=== PATIENT | female | born 1945 | race Caucasian/White ===

== ENCOUNTER → 2016-03-06 | Outpatient (CLI) | payer MEDICARE ==
--- NOTE | 2016-03-09 13:51 | XR ---
EXAMINATION TYPE: XR chest 2V DATE OF EXAM: 03/06/2016 11:06 AM COMPARISON: 07/09/2013 INDICATION: Bronchopneumonia cough dyspnea TECHNIQUE: Frontal and lateral views of the chest are obtained. FINDINGS: The heart size is normal. The pulmonary vasculature is normal. The lungs are clear. IMPRESSION: 1. No acute pulmonary process.
== END | disposition home or self-care (01) ==
LOC: RADXRYALE 10:48
PROVIDERS: ATTEND Physician Assistant Medical
DX: J18.0 Bronchopneumonia, unspecified organism (principal)
CPT/HCPCS: 71020

== ENCOUNTER → 2016-09-22 | Outpatient (CLI) | payer MEDICARE ==
--- NOTE | 2016-09-22 10:34 | XR ---
EXAMINATION TYPE: XR knee complete RT DATE OF EXAM: 09/22/2016 COMPARISON: NONE HISTORY: Right knee pain TECHNIQUE: Three-view right knee FINDINGS: No joint effusion is evident. Posterior patellar spurring is present inferiorly and superio rly. There is medial femoral condylar and medial tibial plateau spurring. No acute fractures are evid ent. Mild diffuse joint space narrowing is present. IMPRESSION: 1. Diffuse degenerative changes through the right knee.
== END | disposition home or self-care (01) ==
LOC: RADXRYALE 09:55
PROVIDERS: ATTEND Family Medicine
DX: M25.861 Other specified joint disorders, right knee (principal); M25.561 Pain in right knee; G89.29 Other chronic pain

== ENCOUNTER → 2016-10-22 | Outpatient (CLI) | payer MEDICARE ==
--- NOTE | 2016-10-23 09:32 | MM ---
Reason for exam: screening (asymptomatic). Last mammogram was performed 1 year ago. History: Patient is postmenopausal. Benign excisional biopsy of the left breast, 2000. Took estrogen for 10 years beginning at age 48. Physical Findings: A clinical breast exam by your physician is recommended on an annual basis and results should be correlated with mammographic findings. MG 3D Screening Mammo W/Cad Bilateral CC and MLO view(s) were taken. Prior study comparison: October 16, 2015, bilateral MG 3d screening mammo w/cad. October 02, 2014, bilateral MG screening mammo w CAD. There are scattered fibroglandular densities. There are typically benign round, vascular calcifications in both breasts. There is no discrete abnormality. ASSESSMENT: Benign, BI-RAD 2 RECOMMENDATION: Routine screening mammogram of both breasts in 1 year.
== END | disposition home or self-care (01) ==
LOC: RADMAMWWP 10:09
PROVIDERS: ATTEND Family Medicine
DX: Z12.31 Encounter for screening mammogram for malignant neoplasm of breast (principal)
CPT/HCPCS: 77063; G0202

== ENCOUNTER → 2017-07-06 | Outpatient (CLI) | payer MEDICARE ==
--- NOTE | 2017-07-06 12:54 | XR ---
EXAMINATION TYPE: XR elbow complete LT DATE OF EXAM: 07/06/2017 CLINICAL HISTORY: Fall 3 weeks ago with subsequent elbow pain TECHNIQUE: Frontal, lateral and oblique images of the left elbow are obtained. COMPARISON: None FINDINGS: There is a subacute fracture with partial healing of the coronoid process of the olecranon with small joint effusion as there is a prominent anterior and minimally visible posterior fat pad. T he fracture fragment measures 2 mm and is nondisplaced and noncomminuted. Additionally there is some adjacent periosteal reaction indicating healing. No additional fractures are seen within the left elb ow. The overlying soft tissue appears unremarkable. IMPRESSION: 2 mm subacute healing chip fracture of the coronoid process of the olecranon with small a ssociated joint effusion of the left elbow..
== END | disposition home or self-care (01) ==
LOC: RADXRYALE 11:41
PROVIDERS: ATTEND Family Medicine
DX: S52.042A Displaced fracture of coronoid process of left ulna, initial encounter for closed fracture (principal)

== ENCOUNTER → 2017-10-27 | Outpatient (CLI) | payer MEDICARE ==
--- NOTE | 2017-10-27 17:47 | XR ---
EXAMINATION TYPE: XR elbow complete LT DATE OF EXAM: 10/27/2017 COMPARISON: 07/06/2017 HISTORY: Persistent left elbow pain TECHNIQUE: Three-view left elbow FINDINGS: Anterior fat pad is normal. No elevation of posterior fat pad is present which is normal. P revious chip fracture of the ulna has healed. No residual fracture or free body is evident. No joint effusion is evident. IMPRESSION: 1. Normal three-view left elbow
== END | disposition home or self-care (01) ==
LOC: RADXRYALE 14:26
PROVIDERS: ATTEND Physician Assistant Medical
DX: M25.522 Pain in left elbow (principal)

== ENCOUNTER → 2017-11-01 | Outpatient (CLI) | payer MEDICARE ==
--- NOTE | 2017-11-03 10:10 | MM ---
Reason for exam: screening (asymptomatic). Last mammogram was performed 1 year ago. History: Patient is postmenopausal. Benign excisional biopsy of the left breast, 2000. Took estrogen for 10 years beginning at age 48. Physical Findings: A clinical breast exam by your physician is recommended on an annual basis and results should be correlated with mammographic findings. MG 3D Screening Mammo W/Cad Bilateral CC and MLO view(s) were taken. Prior study comparison: October 22, 2016, bilateral MG 3d screening mammo w/cad. October 16, 2015, bilateral MG 3d screening mammo w/cad. There are scattered fibroglandular densities. Finding: There are typically benign vascular, dystrophic, round, linear calcifications in both breasts. There is no discrete abnormality. ASSESSMENT: Benign, BI-RAD 2 RECOMMENDATION: Routine screening mammogram of both breasts in 1 year.
== END | disposition home or self-care (01) ==
LOC: RADMAMWWP 10:35
PROVIDERS: ATTEND Family Medicine
DX: Z12.31 Encounter for screening mammogram for malignant neoplasm of breast (principal)
CPT/HCPCS: 77063; 77067

== ENCOUNTER → 2017-12-22 | Outpatient (CLI) | payer MEDICARE ==
--- NOTE | 2017-12-22 15:49 | US ---
EXAMINATION TYPE: US thyroid st tissue head/neck DATE OF EXAM: 12/22/2017 COMPARISON: US 5-16 CLINICAL HISTORY: E04.1 Thyroid Nodule. GLAND SIZE: Right Lobe: 4.0 x 1.4 x 1.6 cm Overall Parenchyma: heterogenous Left Lobe: 4.0 x 1.4 x 1.4 cm Overall Parenchyma: heterogeneous Isthmus Thickness: 0.2 cm NODULES RIGHT: # of nodules measured on right: 3 largest of multiple 1. 1.2 X 1.1 x 0.7 cm hypoechoic solid nodule at the upper pole with well-defined margins. This no dule is wider than tall and shows intranodular vascularity. Prior size: 1.1 x 0.7 x 1.1 cm 2. 0.7 X 0.5 x 0.4 cm isoechoic mixed nodule at the mid pole with poorly defined margins; interrupte d peripheral calcification. This nodule is wider than tall and shows intranodular vascularity. Prior size: 1.0 x 0.6 x 0.8 cm 3. 0.8 X 0.6 x 0.5 cm hypoechoic mixed nodule at the mid medial pole with poorly defined margins. T his nodule is wider than tall and shows no intranodular vascularity. seen as different nodule today LEFT: # of nodules measured on left: 3 1. 0.8 X 0.7 x 0.5 cm hypoechoic cystic nodule at the upper pole with well-defined margins; interru pted peripheral calcification. This nodule is wider than tall and shows no intranodular vascularity. Prior size: 0.7 x 0.4 x 0.6 cm 2. 0.5 X 0.4 x 0.4 cm echogenic mixed nodule at the lower pole with well-defined margins; interrupte d peripheral calcification. This nodule is wider as is tall and shows no intranodular vascularity. Prior size: 0.7 x 0.6 x 0.8 cm 3. 0.4 X 0.3 x 0.1 cm echogenic solid nodule at the mid medial pole with irregular margins; primaril y calcified nodule. This nodule is wider than tall and shows no intranodular vascularity. Prior size: 0.6 x 0.5 x 0.5 cm ISTHMUS: # of nodules measured in the isthmus: 0 Bilateral neck scanned: no evidence of lymphadenopathy. IMPRESSION: Stable nonspecific nodularity.
== END | disposition home or self-care (01) ==
LOC: RADUSWWP 14:14
PROVIDERS: ATTEND Internal Medicine
DX: E04.2 Nontoxic multinodular goiter (principal)
CPT/HCPCS: 76536

== ENCOUNTER → 2018-01-12 | Outpatient (CLI) | payer MEDICARE ==
--- NOTE | 2018-01-12 17:06 | XR ---
Cervical spine HISTORY: Neck pain with arm numbness 5 views of the cervical spine There is multilevel facet arthropathy. Lateral extension of endplates at C4-5 and C5-6, C6-7 on the l eft and on the right at C5-6 and C6-7 cause foraminal encroachment. Anterolisthesis grade 1 C3-4. Los s of disc height present at C2-3, C4-5, C5-6 and C6-7, C7-T1 with associated spondylosis. Minimal ret rolisthesis grade 1 C6-7, C5-6. Prevertebral soft tissues are normal. Patient is edentulous. Calcific ation in the paraspinal soft tissues may be due to carotid artery calcification. IMPRESSION: Degenerative disc disease, foraminal encroachment, facet arthropathy.
== END | disposition home or self-care (01) ==
LOC: RADXRYALE 11:26
PROVIDERS: ATTEND Physician Assistant Medical
DX: M50.30 Other cervical disc degeneration, unspecified cervical region (principal); M46.82 Other specified inflammatory spondylopathies, cervical region
CPT/HCPCS: 72050

== ENCOUNTER → 2018-02-09 | Outpatient (CLI) | payer MEDICARE ==
--- NOTE | 2018-02-10 12:11 | BD ---
EXAMINATION TYPE: Axial Bone Density DATE OF EXAM: 02/09/2018 COMPARISON: NONE CLINICAL HISTORY: Height: 4 FT 11 02/25 Weight: 128 FRAX RISK QUESTIONS: History of Fracture in Adulthood: YES Secondary Osteoporosis: RISK FACTORS HISTORY OF: Active: YES Postmenopausal woman: PART HYST AGE 26 Take estrogen and/or progesterone medications: UNSURE Lost more than 2 inches in height since high school: YES MEDICATIONS: Additional Medications: METFORMIN, CHOLESTEROL PILLS, BLOOD PRESSURE MEDS, Additional History: PT HAS DIABETES, EXAM MEASUREMENTS: Bone mineral densitometry was performed using the [employer] System. Bone mineral density as measured about the Lumbar spine is: ----- L1-L4(G/cm2): 1.435 T Score Values are as follows: ----- L2: 2.2 ----- L3: 2.4 ----- L4: 3.7 ----- L1-L4: 2.1 PREV NOT DONE HERE Bone mineral density about the R hip (g/cm2): 0.726 Bone mineral density about the L hip (g/cm2): 0.751 T Score values are as follows: -----R Neck: -2.2 -----L Neck: -2.1 -----R Total: -1.8 -----L Total: -1.4 PREV NOT DONE HERE IMPRESSION: Osteopenia bilateral femora NOTE: T-SCORE=SD OF THE YOUNG ADULT MEAN.
== END ==
LOC: RADBDWWP 15:33
PROVIDERS: ATTEND Family Medicine
DX: M85.852 Other specified disorders of bone density and structure, left thigh (principal); M85.851 Other specified disorders of bone density and structure, right thigh
CPT/HCPCS: 77080

== ENCOUNTER → 2018-04-28 | Outpatient (CLI) | payer MEDICARE ==
--- NOTE | 2018-04-28 15:21 | MR ---
EXAMINATION TYPE: MR cervical spine wo con DATE OF EXAM: 04/28/2018 COMPARISON: Cervical spine dated 01/12/2018 x-rays HISTORY: Cervical disc disorder / Cervicalgia TECHNIQUE: Multiplanar, multisequence images of the cervical spine were acquired. FINDINGS: There is slight retrolisthesis of C4 and C5, C5 on C6 and C6 on C7 with minimal anterolisth esis (grade 1) of C7 on T1. Multilevel malalignment is likely on a degenerative basis. Ligamentum fla vum buckling is seen throughout the lower cervical spine. Multilevel degenerative disc disease and di sc desiccation is seen. C2-C3: Broad-based disc bulge is present without spinal canal stenosis nor neural foraminal narrowing . C3-C4: Bilateral uncovertebral hypertrophy and facet arthropathy are present resulting in mild bilate ral neural foraminal narrowing without spinal canal stenosis. C4-C5: There is a broad-based disc bulge, uncovertebral hypertrophy and facet arthropathy creating mi ld left and moderate right neural foraminal narrowing and mild spinal canal stenosis. C5-C6: There is a right paracentral disc herniation superimposed upon a broad-based disc bulge with u ncovertebral hypertrophy, facet arthropathy, and ligamentum flavum buckling all contributing to moder ate spinal canal stenosis, mild right neural foraminal narrowing and moderate left neural foraminal n arrowing. C6-C7: There is a broad-based disc bulge, ligamentum flavum buckling, and uncovertebral hypertrophy a s well as facet arthropathy contributing to moderate bilateral neural foraminal narrowing and mild sp inal canal stenosis. C7-T1: There is a broad-based disc bulge and ligamentum flavum buckling resulting in mild bilateral n eural foraminal narrowing without spinal canal stenosis. The thyroid gland is noted be heterogenous corresponding to the prior thyroid ultrasound of 8. IMPRESSION: 1. Right paracentral disc herniation at C5-C6 in combination with degenerative disc disease contribut es moderate spinal canal stenosis, mild right neural foraminal narrowing and moderate left neural for aminal narrowing. 2. Multilevel malalignment throughout the cervical spine is likely on a degenerative basis. 3. Moderate multilevel degenerative disc disease results in variable degrees of neural foraminal narr owing as described above as well as mild spinal canal stenosis at C4-C5 and C6-C7.
== END | disposition home or self-care (01) ==
LOC: RADMRIMAIN 12:45
PROVIDERS: ATTEND Physician Assistant Medical
DX: M48.02 Spinal stenosis, cervical region (principal); M50.222 Other cervical disc displacement at C5-C6 level; M50.322 Other cervical disc degeneration at C5-C6 level
CPT/HCPCS: 72141

== ENCOUNTER → 2018-11-21 | Outpatient (CLI) | payer MEDICARE ==
--- NOTE | 2018-11-23 09:59 | MM ---
Reason for exam: screening (asymptomatic). Last mammogram was performed 1 year and 1 month ago. History: Patient is postmenopausal. Benign excisional biopsy of the left breast, 2000. Took estrogen for 10 years beginning at age 48. Physical Findings: A clinical breast exam by your physician is recommended on an annual basis and results should be correlated with mammographic findings. MG 3D Screening Mammo W/Cad Bilateral CC and MLO view(s) were taken. Prior study comparison: November 01, 2017, bilateral MG 3d screening mammo w/cad. October 22, 2016, bilateral MG 3d screening mammo w/cad. The breast tissue is heterogeneously dense. This may lower the sensitivity of mammography. No significant changes when compared with prior studies. ASSESSMENT: Benign, BI-RAD 2 RECOMMENDATION: Routine screening mammogram of both breasts in 1 year.
== END | disposition home or self-care (01) ==
LOC: RADMAMWWP 15:31
PROVIDERS: ATTEND Family Medicine
DX: Z12.31 Encounter for screening mammogram for malignant neoplasm of breast (principal)
CPT/HCPCS: 77063; 77067

== ENCOUNTER → 2018-12-26 | Outpatient (CLI) | payer MEDICARE | END | disposition home or self-care (01) | LOC: CPPFTMAIN 11:39 | PROVIDERS: ATTEND Internal Medicine Critical Care Medicine | DX: J44.9 Chronic obstructive pulmonary disease, unspecified (principal) | CPT/HCPCS: 94060; 94726; 94729 ==

== ENCOUNTER → 2019-02-20 | Outpatient (CLI) | payer MEDICARE ==
--- NOTE | 2019-02-20 11:43 | XR ---
EXAMINATION TYPE: XR lumbosacral spine min 4V DATE OF EXAM: 02/20/2019 CLINICAL HISTORY: Acute on chronic low back pain TECHNIQUE: Frontal, lateral, and oblique images of the lumbar spine are obtained. COMPARISON: None FINDINGS: There is a S-shaped scoliotic curvature of the lumbar spine. Moderate degenerative disc di sease is seen as multilevel intervertebral disc space narrowing, endplate sclerosis, anterior osteoph ytes and facet arthropathy as well as vacuum disc phenomenon. Extensive atherosclerosis of the abdomi nal aorta. Surgical clips in the right upper quadrant from prior cholecystectomy. There are 5 lumbar type vertebral bodies identified. The lumbar spine shows satisfactory alignment without evidence of acute fracture or dislocation. Vertebral body heights and disk space heights are within normal limits . Oblique images demonstrate neural foraminal narrowing at each level, difficult to grade given the s coliosis.. The overlying soft tissue appears unremarkable. IMPRESSION: 1. No acute fracture or malalignment is seen in the lumbar spine. 2. Advanced degenerative disc disease of the lumbar spine and S-shaped scoliosis of the lumbar spine.
== END | disposition home or self-care (01) ==
LOC: RADXRYALE 10:42
PROVIDERS: ATTEND Physician Assistant Medical
DX: M51.36 Other intervertebral disc degeneration, lumbar region (principal); M41.86 Other forms of scoliosis, lumbar region
CPT/HCPCS: 72110

== ENCOUNTER → 2019-06-29 | Outpatient (CLI) | payer MEDICARE ==
--- NOTE | 2019-06-29 11:33 | XR ---
EXAMINATION TYPE: XR ribs RT w pa chest xray DATE OF EXAM: 06/29/2019 COMPARISON: 03/06/2016 HISTORY: Pain TECHNIQUE: Single view of the chest right views of the ribs are submitted. FINDINGS: The lungs are clear. No Evidence for pneumothorax. No evidence for focal contusion. Medi astinal structures are midline. Evaluation of the ribs demonstrates a displaced rib fractures of rig ht ribs 4 through 8 IMPRESSION: displaced rib fractures of right ribs 4 through 8. No definite pneumothorax appreciated a t this time.
== END | disposition home or self-care (01) ==
LOC: RADXRYALE 11:13
PROVIDERS: ATTEND Family Medicine
DX: S22.41XD Multiple fractures of ribs, right side, subsequent encounter for fracture with routine healing (principal)

== ENCOUNTER → 2019-07-11 | Outpatient (CLI) | payer MEDICARE ==
[2019-07-11 12:50] LABS: INR 0.9 (<1.2); Partial Thromboplastin Time 22.5 sec (22.0-30.0); Prothrombin Time 9.7 sec (9.0-12.0)
[2019-07-11 13:01] LABS: HCT 38.4 % (34.0-46.0); HGB 12.7 gm/dL (11.4-16.0); MCH 29.1 pg (25.0-35.0); MCHC 33.1 g/dL (31.0-37.0); Mean Platelet Volume 6.9; Platelet Count 375 k/uL (150-450); RBC 4.37 m/uL (3.80-5.40); RDW 12.9 % (11.5-15.5); WBC 7.9 k/uL (3.8-10.6)
[2019-07-11 18:49] LABS: African American GFR (CKD) 104.8 (60.0-200.0); Albumin 4.4 g/dL (3.80-4.90); Albumin/Globulin Ratio 2.32 (1.60-3.17); BUN/Creat Ratio 21.67 Ratio (12.00-20.00); Calcium 9.8 mg/dL (8.7-10.3); Globulin 1.9 g/dL (1.6-3.3); Non-African American GFR(CKD) 90.4 (60.0-200.0); Potassium 4.7 mmol/L (3.5-5.5); Total Bilirubin 0.4 mg/dL (0.3-1.2); Total Protein 6.3 g/dL (6.2-8.2)
== END | disposition home or self-care (01) ==
LOC: LABWHC1 11:27
PROVIDERS: ATTEND Orthopaedic Surgery
DX: Z01.818 Encounter for other preprocedural examination (principal); Z01.812 Encounter for preprocedural laboratory examination; U07.1 COVID-19
CPT/HCPCS: 80053; 85027; 85610; 85730; 87070; 87635

== ENCOUNTER → 2019-07-12 | Outpatient (CLI) | payer MEDICARE ==
--- NOTE | 2019-07-12 11:14 | XR ---
EXAMINATION TYPE: XR ribs RT w pa chest xray DATE OF EXAM: 07/12/2019 CLINICAL HISTORY: Known right-sided rib fractures progress study. TECHNIQUE: Single frontal view of the chest is obtained. A frontal and oblique images of the right-si ded ribs. COMPARISON: Prior x-ray June 29, 2019 FINDINGS: There is chronic parenchymal change without suspicious new focal air space opacity, pleura l effusion, or pneumothorax seen. The cardiac silhouette size remains within normal limits with athe rosclerotic change in the aortic knob. Cholecystectomy clips are redemonstrated. S-shaped scoliosis o f the visualized spine again seen. There is redemonstration of persistent displaced fractures involving the posterior right fourth throu gh eighth ribs. No significant change in alignment or new callus formation. Osseous structures redemo nstrated demineralized. No new fractures are present. IMPRESSION: Stable age indeterminate displaced fractures of the posterior right fourth through eighth ribs. No significant interval change.
== END | disposition home or self-care (01) ==
LOC: RADXRYALE 10:44
PROVIDERS: ATTEND Physician Assistant Medical
DX: S22.41XS Multiple fractures of ribs, right side, sequela (principal)

== ENCOUNTER → 2019-07-26 | Outpatient (CLI) | payer MEDICARE ==
--- NOTE | 2019-07-26 11:37 | XR ---
EXAMINATION TYPE: XR ribs RT w pa chest xray DATE OF EXAM: 07/26/2019 CLINICAL HISTORY: Known right-sided rib fractures. TECHNIQUE: Single frontal view of the chest is obtained. A frontal and oblique images of the right-si ded ribs are acquired. COMPARISON: Chest and right-sided rib x-ray July 12, 2019 FINDINGS: There is persistent right upper to midlung linear scarring and/or atelectasis laterally ne ar fracture site. No new focal airspace opacity, pleural effusion, pneumothorax is seen bilaterally. The cardiac silhouette size remains within normal limits without atherosclerotic change aortic knob. Underlying S-shaped scoliosis redemonstrated. Cholecystectomy clips redemonstrated. There are persistent displaced fractures involving the posterior lateral right fourth through eighth ribs with some new callus formation now identified. IMPRESSION: New callus formation consistent with healing subacute posterolateral right fourth through eighth rib fractures..
== END | disposition home or self-care (01) ==
LOC: RADXRYALE 11:14
PROVIDERS: ATTEND Physician Assistant Medical
DX: M89.8X8 Other specified disorders of bone, other site (principal)

== ENCOUNTER → 2019-07-28 | Outpatient (CLI) | payer MEDICARE ==
[2019-07-28 15:25] LABS: Appearance,Urine Clear (Clear); Bilirubin,Urine Negative (Negative); Blood,Urine Negative (Negative); Color,Urine Light Yellow; Glucose,Urine (UA) Negative (Negative); Ketones,Urine Negative (Negative); Leukocyte Esterase,Urine Trace (Negative); Nitrite,Urine Negative (Negative); PH, Urine 5.5 (5.0-8.0); Protein,Urine Negative (Negative); RBC,Urine <1 /hpf (0-5); Specific Gravity,Urine 1.011 (1.001-1.035); Urobilinogen,Urine <2.0 mg/dL (<2.0); WBC,Urine 1 /hpf (0-5)
== END | disposition home or self-care (01) ==
LOC: LABPAT 13:49
PROVIDERS: ATTEND Orthopaedic Surgery
DX: Z01.818 Encounter for other preprocedural examination (principal); Z01.812 Encounter for preprocedural laboratory examination; Z11.59 Encounter for screening for other viral diseases
CPT/HCPCS: 81001; U0003

== ENCOUNTER 2019-07-31 10:27 | Day surgery (SDC) | payer MEDICARE ==
[2019-07-28 07:58] VITALS: BMI 25.0
[~2019-07-31 10:27] MED LIST: ACETAMINOPHEN TAB 500 MG TAB PO ONE; HYDROmorphone 0.5 MG/0.5 ML SYRINGE IVP PRN; LIDOCAINE 1% (10MG/ML) FOR IV START INTRADERMA PRN; MELOXICAM 7.5 MG TAB PO ONE; ONDANSETRON 4 MG/2 ML VIAL IVP ONE; ROPIVACAINE 246.25 MG, EPINEPHrine 0.5 MG, KETOROLAC 30 MG, cloNIDine HCL/PF 80 MCG, WA... MISCELLANE ONE; TRANEXAMIC ACID 1,000 MG in SODIUM CHLORIDE 0.9% 100 ML IVPB ONE; VANCOMYCIN 1,000 MG in SODIUM CHLORIDE 0.9% 250 ML IVPB ONE; VANCOMYCIN 750 MG in SODIUM CHLORIDE 0.9% 250 ML IVPB ONE
[2019-07-31 11:12] LABS: Glucose,Whole Blood 108 mg/dL (75-99)
[2019-07-31] MEDS ORDERED: HYDROmorphone 0.5 MG/0.5 ML SYRINGE IVP PRN ×3 (11:14)
[2019-07-31] MEDS ORDERED: DIAZEPAM 5 MG TAB PO PRN (11:14)
[2019-07-31] MEDS ORDERED: NALOXONE 0.4 MG/ML 1 ML VIAL IV PRN (11:14)
[2019-07-31] MEDS ORDERED: MAGNESIUM HYDROXIDE 2,400 MG/10 ML CUP PO PRN (11:14)
[2019-07-31] MEDS ORDERED: BISACODYL 10 MG SUPP RECTAL PRN (11:14)
[2019-07-31] MEDS ORDERED: hydrOXYzine PAMOATE 25 MG CAP PO PRN (11:14)
[2019-07-31] MEDS ORDERED: HYDROcodone/APAP 5-325MG 1 EACH TAB PO PRN (11:14)
[2019-07-31] MEDS ORDERED: ONDANSETRON 4 MG/2 ML VIAL IVP PRN (11:14)
[2019-07-31] MEDS ORDERED: NA PHOS,M-B/NA PHOS,DI-BA 133 ML ENEMA RECTAL PRN (11:14)
[2019-07-31] MEDS: LACTATED RINGERS 1,000 ML IV SCH (11:20)
[2019-07-31] MEDS ORDERED: fentaNYL (PF) 50 MCG/ML 2 ML AMP IVP ONE (11:50)
[2019-07-31] MEDS ORDERED: MIDAZOLAM 2 MG/2 ML VIAL IVP ONE (11:50)
[2019-07-31] MEDS ORDERED: MIDAZOLAM 2 MG/2 ML VIAL ONE (12:30)
[2019-07-31] MEDS ORDERED: TRANEXAMIC ACID 1,000 MG/10 ML VIAL ONE (12:30)
[2019-07-31] MEDS ORDERED: PROPOFOL 10 MG/ML 20 ML VIAL IV ONE (12:30)
[2019-07-31] MEDS ORDERED: fentaNYL (PF) 50 MCG/ML 2 ML AMP ONE (12:30)
[2019-07-31] MEDS ORDERED: SODIUM CHLORIDE 0.9% 100 ML BAG ONE (12:30)
[2019-07-31] MEDS: ROPIVACAINE 246.25 MG, EPINEPHrine 0.5 MG, KETOROLAC 30 MG, cloNIDine HCL/PF 80 MCG, WA... MISCELLANE ONE ×10 (13:24→13:58)
--- NOTE | 2019-07-31 13:59 | P.ANPRN ---
Procedure Note - Anesthesia - Nerve Block Performed Right Adductor Canal Infusion Time Out Performed: Yes (1148) Date of Procedure: 07/31/19 Procedure Start Time: 11:49 Procedure Stop Time: 11:54 Location of Patient: PreOp Indication: Acute Post-Operative Pain, Requested by Surgeon Specifically requested for management of pain by DrPapo: David Tom Sedation Type: Sedate with meaningful contact maintained Preparation: Sterile Prep Position: Supine Catheter: None Needle Types: Pajunk Needle Gauge: 18 Ultrasound used to visualize needle placement: Yes Ultrasound used to observe medication spread: Yes Injectate: 0.5% Ropivacaine (see comment for volume) (15cc) Blood Aspirated: No Pain Paresthesia on Injection Noted: No Resistance on Injection: Normal Image Stored and Saved: Yes Events: Uneventful and Well Tolerated
--- NOTE | 2019-07-31 14:16 | P.OP ---
Date of Procedure: 07/31/19 Procedure(s) Performed: PREOPERATIVE DIAGNOSIS: Right knee severe osteoarthritis with genu varum POSTOPERATIVE DIAGNOSIS: Right knee severe osteoarthritis with genu varum OPERATION: Right knee cemented total replacement arthroplasty. ANESTHESIA: Spinal ESTIMATED BLOOD LOSS: 100 ml. BUS ASSISTANT: Jamila Kaur PA-C (assistance with: patient positioning, retraction, exposure, hemostasis, leg positioning, implantation, irrigation, closure, dressing) COMPLICATIONS: None apparent. COMPONENTS IMPLANTED: Persona system from [employer] INDICATIONS: Mrs. Fernandez is a 74 year old lady with a history of right knee osteoarthritis. The patient's knee is end-stage, and conservative management has failed. The operation of knee replacement has been discussed at length in the office, as well as potential risks and complications. These are inclusive of, but not limited to: bleeding, infection, scarring, discomfort, blood vessel and nerve damage, need for further surgery, failure to relieve symptoms, persistence, recurrence, or worsening of problems, loosening, dislocation, wear, blood clot, pulmonary embolism, , gait dysfunction, stiffness, and other risks as discussed in the office. The patient elects to proceed and the consent form has been signed. PROCEDURE: The patient was taken to the operating room and positioned on the operating room table in the supine position. Anesthesia was initiated. Care was taken to make sure that all pressure points were adequately padded. The operative lower extremity was prepped and draped in the usual aseptic fashion using ChloraPrep. Ioban drape was used for the case and the patient received intravenous antibiotics within one hour of the incision. A pneumotourniquet and leg lucas were used for the case. The limb was exsanguinated with an Esmarch bandage and the tourniquet was inflated to 350 mmHg. Time-out was called confirming the patient's identity, side, procedure and administration of antibiotics and tranexamic acid. The incision was then created midline directly over the knee, carried down through skin and into the subcutaneous tissues and down to fascia. Full thickness subcutaneous medial flap was developed. Medial parapatellar arthrotomy was performed and the interior of the knee was inspected. There was end-stage osteoarthritis of the knee with a mild to moderate genu varum type deformity. The fat pad was excised and proximal medial release on the tibia was completed using meticulous dissection and a curved osteotome. The anterior cruciate ligament was taken down. Note was made of significant attrition of the anterior and significant degenerative appearance of the cruciate ligaments. The exposure was excellent. The knee was flexed 90 degrees and the patella was everted. A spot was chosen on the femur approximately 1 cm anterior to the posterior cruciate ligament insertion and an intramedullary hole was created within the femur. The intramedullary guide was then set to 5 degrees of valgus. The distal cutting block was attached and pinned into position. An appropriate amount of distal femoral resection was set. The oscillating saw was then used to make the distal femoral cut. This cut was confirmed to be flat with the flat end of an osteotome. The retractors were placed around the tibia and the tibial surface was addressed. The angle and depth of resection was adjusted using an extramedullary cutting guide. The guide had a built-in 3 degree posterior slope cut. Once the cutting guide was adjusted appropriately and in line with the axis of the tibia and confirmed to be in good position in relation to the second metatarsal and transmalleolar axis, the tibial cut was then created with protection of the posterior neurovascular structures and the collateral ligaments. The tibial cut surface was removed and sized. Femoral sizing was then accomplished using anterior referencing. Care was taken to analyze the posterior condyles for signs of deficiency or severe wear, and adjustments to the guide were made, as appropriate. 3 degree external rotation pins were placed. The cutting jig for the femur was applied to these pins. The planned cuts were further analyzed prior to performing them with the oscillating saw. No femoral notching was produced. Bone fragments were removed and the cut surfaces were finished, as necessary, with a reciprocating saw. Spacer block technique was then used to confirm that the flexion and extension gaps were equal. Soft tissue releases and adjustment of the tibial and/or femoral cuts were made, as necessary, until the gaps were equal. This included release of the posterior cruciate ligament, which was excessively tight in this patient. The femur was then further finished for a posterior cruciate ligament substituting component. Patellar resurfacing was performed using a reamer. The size of the required patellar component was estimated and the patellar surface was then reamed down to a residual thickness which would recreate the [place] thickness with the component. The exact placement of the patellar component was adjusted for position based on preoperative x-rays and intraoperative findings. Prior to placing trial components, anesthetic solution consisting of ropivicaine with epinephrine, ketorolac, and clonidine was injected carefully and methodically in a grid pattern using aspiration technique into the soft tissue around the knee circumferentially, starting with the deeper tissues first and progressing to fascia, and then finally the skin/subcutaneous tissue. Particular care was taken when injecting the posterior capsule. The trial components were inserted. The tibial tray was allowed to self center and the patella was noted to track very well. The position of the tibial component was marked and the tibia was then finished for a stemmed tibial component. Cement was mixed on the back table and applied to the final components. Trial components were removed and the cut surfaces of the bone were pulse lavaged thoroughly and dried. Cement was then applied to the tibial surface and pressurized into the surface using finger pressurization technique. The tibial component was then applied and excess cement was removed after it was impacted securely and noted to be flush with the cut surface. In similar fashion, the cement was applied to the cut femoral surface, pressurized in using finger pressurization and the component was impacted into place. Excess cement was removed. The polyethylene spacer was then implanted and locked into position. The patellar component was then applied in similar technique and a patellar clamp was used to hold the patella in place as the cement hardened. Once the cement had fully hardened, the knee was reinspected. Any other cement extrusion was removed and final kinematic testing showed range of motion from 0 to 130 degrees with excellent stability, both medially and laterally and appropriate alignment of the leg. Patellar tracking was excellent. The knee was then thoroughly pulse lavaged with normal saline. The tourniquet was deflated and hemostasis was obtained with electrocautery and IV tranexamic acid, 1 g given at the start of the operation and 1 g at the start of closure. Closure was with #2 Ethibond in the fascia/capsule and supplemented with #2 Quill, 2-0 Vicryl suture was used for the subcutaneous tissues and 3-0 Quill for the skin. Dermabond/Steri-Strips were then applied. A lightly compressive dressing was applied using Webril and an Teto wrap. The patient was then transferred to stretcher and taken to the recovery room in stable condition. Sponge and needle counts were correct.
[2019-07-31] MEDS ORDERED: ROPIVACAINE 0.2%-NS ON-Q PUMP 1,090 MG, EMPTY PAIN BALL 1 EACH MISCELLANE PRN (14:47)
--- NOTE | 2019-07-31 15:14 | XR ---
EXAMINATION TYPE: XR knee limited RT DATE OF EXAM: 07/31/2019 CLINICAL HISTORY: Right knee pain and arthritis status post total knee replacement. TECHNIQUE: Portable AP and crosstable lateral views of the right knee are obtained immediately posto peratively. COMPARISON: None FINDINGS: Metallic hardware from total right knee arthroplasty is seen and appears satisfactory in a lignment and position. There is evidence of recent surgery with diffuse subcutaneous and soft tissue swelling noted. IMPRESSION: METALLIC HARDWARE FROM TOTAL RIGHT KNEE ARTHROPLASTY IS SATISFACTORY IN ALIGNMENT.
[2019-07-31 15:48] LABS: Glucose,Whole Blood 91 mg/dL (75-99)
[2019-07-31] MEDS ORDERED: LACTATED RINGERS 1,000 ML IV ONE (16:13)
[2019-07-31 16:58] LABS: Glucose,Whole Blood 107 mg/dL (75-99)
[2019-07-31] MEDS: SYMBICORT 160-4.5 MCG INHALER INHALATION SCH (20:50)
[2019-07-31] MEDS ORDERED: ASPIRIN 325 MG TAB PO SCH (21:00)
[2019-07-31] MEDS ORDERED: SENNOSIDES-DOCUSATE SODIUM 1 EACH TAB PO SCH (21:00)
[2019-07-31] MEDS: ASPIRIN 81 MG PO SCH (21:05)
[2019-07-31] MEDS: metFORMIN 500 MG TAB PO SCH (21:06)
[2019-07-31] MEDS: DICYCLOMINE 20 MG TAB PO SCH (21:07)
[2019-07-31] MEDS ORDERED: VANCOMYCIN 1,000 MG in SODIUM CHLORIDE 0.9% 250 ML IVPB ONE (23:00)
[2019-07-31] MEDS: SODIUM CHLORIDE 0.9% 1,000 ML IV SCH (23:15)
[2019-08-01] MEDS: HYDROcodone/APAP 5-325MG 1 EACH TAB PO PRN ×2 (05:25→11:27)
[2019-08-01] MEDS: SODIUM CHLORIDE 0.9% 1,000 ML IV SCH (05:30)
[2019-08-01] MEDS: LACTATED RINGERS 1,000 ML IV SCH (05:32)
--- NOTE | 2019-08-01 06:38 | CONS ---
CONSULTATION DATE OF SERVICE: 07/31/2007 REASON FOR CONSULTATION: Advice regarding asthma and multiple medical issues requested by Dr. Tom. HISTORY OF PRESENT ILLNESS: This 74-year-old woman with a past medical history of asthma, diabetes mellitus, GERD, hypertension, hyperlipidemia, history of DJD being followed by Dr. Birmingham in the outpatient setting admitted for right total knee arthroplasty by Dr. Tom. There is no history of chest pain. No history of palpitations. No history of headache, loss of consciousness, nausea, vomiting, diarrhea, fever, rigors or chills at this time. Patient is complaining of right knee pain and Ell[place] has been given at this time. PAST MEDICAL HISTORY: Asthma, diabetes mellitus, GERD, hypertension, hyperlipidemia, history of appendectomy. MEDICATIONS: Medications are: 1. Meloxicam 15 mg p.o. daily. 2. Aspirin 325 mg daily. 3. Glucophage 500 mg p.o. b.i.d. 4. Omeprazole 20 mg with breakfast. 5. Multivitamins 1 p.o. daily. 6. Zestril 5 mg p.o. daily. 7. Elliston 1 tablet p.o. b.i.d. p.r.n. 8. Zyrtec 10 mg p.o. daily. 9. Bentyl 20 mg p.o. t.i.d. 10.Vitamin D3, 1000 daily. 11.Symbicort 160/4.5 two puffs b.i.d. 12.Fosamax 70 mg p.o. Wednesday. ALLERGIES: BACTRIM. FAMILY HISTORY: History of diabetes mellitus and cancer in the family. SOCIAL HISTORY: Previous history of smoking. No history of current smoking or alcohol intake. REVIEW OF SYSTEMS: ENT: No diminished hearing or diminished vision. CARDIOVASCULAR SYSTEM: No angina. RESPIRATORY SYSTEM: No cough or hemoptysis. GI: No nausea. : No dysuria. NERVOUS SYSTEM: No numbness or weakness. ALLERGY/IMMUNOLOGY: As mentioned earlier. HEMATOLOGY: No history of anemia. ENDOCRINE: As mentioned earlier. CONSTITUTIONAL: As mentioned earlier. DERMATOLOGY: Negative. RHEUMATOLOGY: Negative. PSYCHIATRIC: As mentioned earlier. MUSCULOSKELETAL: As mentioned earlier. PHYSICAL EXAMINATION: The patient is alert and oriented x3. Pulse 70, blood pressure 163/80, respiration 20, temperature 97.9 degrees, pulse ox 100% on room air. HEENT: Conjunctivae normal. Oral mucosa moist. NECK: No jugular venous distention. No carotid bruit. No lymph node enlargement. CARDIOVASCULAR: S1, S2 muffled. No S3, no S4. RESPIRATORY: Breath sounds diminished at the bases. No rhonchi. No crackles. ABDOMEN: Soft, nontender. No mass palpable. LEGS: Status post right total knee arthroplasty. NERVOUS SYSTEM: Higher functions as mentioned earlier. Moves all 4 limbs. No focal motor or sensory deficits. LYMPHATICS: No lymphadenopathy of the neck, axillae or groin. SKIN: No ulcer, rash or bleeding. JOINTS: As mentioned earlier. LABS: Accu-Cheks are 91 and 107. Otherwise hematology done recently within normal limits. Coags are normal. Chemistry was also reviewed. ASSESSMENT: 1. Status post right total knee arthroplasty. 2. History of asthma. 3. Diabetes mellitus type 2. 4. Gastroesophageal reflux disease. 5. Hypertension. 6. Hyperlipidemia. 7. History of degenerative joint disease. 8. Hypothyroidism. 9. History of thyroid nodules. 10.Appendectomy. 11.Cholecystectomy. 12.History of carpal tunnel syndrome. 13.FULL CODE. RECOMMENDATIONS AND DISCUSSION: This 74-year-old woman presented with multiple complex medical issues. I would recommend to continue current medications, continue symptomatic treatment. Resume the home medication. Accu-Cheks a.c., at bedtime and scale. Otherwise, we will follow the patient closely with you. DVT prophylaxis. Incentive spirometry. The patient may be asked to follow with Dr. Birmingham closely after discharge. Thank you Dr. Tom for letting us participate in the care of this patient. Will hold the Meloxicam. MMODL / IJN: [id number] /
[2019-08-01 06:54] LABS: Glucose,Whole Blood 117 mg/dL (75-99)
[2019-08-01] MEDS ORDERED: PANTOPRAZOLE 40 MG TABLET PO SCH (07:30)
[2019-08-01] MEDS: SYMBICORT 160-4.5 MCG INHALER INHALATION SCH (07:39)
[2019-08-01] MEDS: INSULIN ASPART (NovoLOG) 100 UNIT/ML VIAL SQ SCH ×2 (07:42→12:17)
[2019-08-01 08:03] VITALS: BP 107/57; PULSE 70; RESP 16; TEMP 98.8
[2019-08-01] MEDS: ASPIRIN 81 MG PO SCH (08:25)
[2019-08-01] MEDS: metFORMIN 500 MG TAB PO SCH (08:25)
[2019-08-01] MEDS: DICYCLOMINE 20 MG TAB PO SCH (08:57)
[2019-08-01] MEDS ORDERED: LISINOPRIL 5 MG TAB PO SCH (09:00)
[2019-08-01] MEDS ORDERED: CHOLECALCIFEROL 1,000 UNIT TAB PO SCH (09:00)
[2019-08-01] MEDS ORDERED: MELOXICAM 7.5 MG TAB PO SCH (09:00)
[2019-08-01] MEDS ORDERED: EZETIMIBE 10 MG TAB PO SCH (09:00)
[2019-08-01] MEDS ORDERED: MULTIVITAMINS, THERA 1 EACH TAB PO SCH (09:00)
[2019-08-01 09:38] LABS: Basophils # (A) 0.1 k/uL (0-0.2); Basophils % (A) 1 %; Eosinophils # (A) 0.4 k/uL (0-0.7); Eosinophils % (A) 4 %; HCT 33.6 % (34.0-46.0); HGB 10.9 gm/dL (11.4-16.0); Lymphocytes # (A) 1.2 k/uL (1.0-4.8); Lymphocytes % (A) 10 %; MCH 28.7 pg (25.0-35.0); MCHC 32.3 g/dL (31.0-37.0); MCV 88.8 fL (80.0-100.0); Mean Platelet Volume 6.9; Monocytes # (A) 0.8 k/uL (0-1.0); Monocytes % (A) 7 %; Neutrophils # (A) 9.3 k/uL (1.3-7.7); Neutrophils % (A) 78 %; Platelet Count 291 k/uL (150-450); RBC 3.79 m/uL (3.80-5.40); RDW 12.9 % (11.5-15.5); WBC 11.9 k/uL (3.8-10.6)
--- NOTE | 2019-08-01 10:16 | P.DS ---
Providers Expected date of discharge: 08/01/19 Attending physician: David Tom Consults: 07/31/19 11:14 Consult Physician Routine Consulting Provider: Allyssa Luna Reason/Comments: medical management Do you want consulting provider notified?: Yes Primary care physician: Stated None - Discharge Diagnosis(es) (1) Osteoarthritis of right knee Patient was admitted to the OR on 07/31/2019 to undergo a right total knee arthroplasty. She had failed conservative measures as an outpatient and desired to proceed with elective surgery after given informed consent. She underwent the above procedure which she tolerated well without complication. Postoperative hospital course has remained without complication. On day of discharge she is afebrile, vital signs stable, labs within acceptable ranges, tolerating by mouth meds and diet, voiding without difficulty, positive flatus, denies abdominal pain or calf pain, pain is controlled on oral pain medication and has no new complaints. Wound is benign, neurovascular status is intact, calf is soft and nontender, abdomen soft and nontender. Review of systems is negative for numbness, tingling, fever, chills, chest pain, shortness of breath, nausea, vomiting, dizziness, headaches, slurred speech or other Current Visit: Yes Status: Acute Priority: Medium Procedures: RTKA Patient Condition at Discharge: Good Plan - Discharge Summary Discharge Rx Participant: Yes New Discharge Prescriptions: New Aspirin 325 mg PO BID #60 tab HYDROcodone/APAP 7.5-325MG [[place] 7.5-325] 1 - 2 each PO Q6HR PRN #56 tab PRN Reason: Pain No Action Budesonide/Formoterol Fumarate [Symbicort 160-4.5 Mcg Inhaler] 2 puff INHALATION BID Omeprazole 20 mg PO AC-BRKFST Multivitamins, Thera [Multivitamin] 1 tab PO DAILY Cholecalciferol [Vitamin D3] 1,000 mg PO DAILY Aspirin 325 mg PO DAILY Meloxicam [Mobic] 15 mg PO DAILY Lisinopril [Zestril] 5 mg PO DAILY Ezetimibe [Zetia] 10 mg PO DAILY metFORMIN HCL [Glucophage] 500 mg PO BID HYDROcodone/APAP 5-325MG [[place] 5-325] 1 tab PO BID PRN PRN Reason: Pain Dicyclomine [Bentyl] 20 mg PO TID Alendronate Sodium [Fosamax] 70 mg PO GRISSOM Discharge Medication List Budesonide/Formoterol Fumarate [Symbicort 160-4.5 Mcg Inhaler] 2 puff INHALATION BID 07/09/13 [History] Omeprazole 20 mg PO AC-BRKFST 07/09/13 [History] Aspirin 325 mg PO DAILY 09/06/13 [History] Cholecalciferol [Vitamin D3] 1,000 mg PO DAILY 09/06/13 [History] Multivitamins, Thera [Multivitamin] 1 tab PO DAILY 09/06/13 [History] Alendronate Sodium [Fosamax] 70 mg PO GRISSOM 07/10/19 [History] Dicyclomine [Bentyl] 20 mg PO TID 07/10/19 [History] Ezetimibe [Zetia] 10 mg PO DAILY 07/10/19 [History] HYDROcodone/APAP 5-325MG [[place] 5-325] 1 tab PO BID PRN 07/10/19 [History] Lisinopril [Zestril] 5 mg PO DAILY 07/10/19 [History] Meloxicam [Mobic] 15 mg PO DAILY 07/10/19 [History] metFORMIN HCL [Glucophage] 500 mg PO BID 07/10/19 [History] Aspirin 325 mg PO BID #60 tab 08/01/19 [Rx] HYDROcodone/APAP 7.5-325MG [[place] 7.5-325] 1 - 2 each PO Q6HR PRN #56 tab 08/01/19 [Rx] Follow up Appointment(s)/Referral(s): [facility], [NON-STAFF] - As Needed David Tom MD [STAFF PHYSICIAN] - 08/15/19 10:00 am Activity/Diet/Wound Care/Special Instructions: Keep wound clean and dry Take meds as directed Follow-up with Dr. Tom in office Weight bear as tolerated May shower in 3 days if no bleeding Discharge Disposition: HOME WITH HOME HEALTH SERVICES
[2019-08-01 11:53] LABS: Glucose,Whole Blood 149 mg/dL (75-99)
[2019-08-01 11:55] LABS: Anisocytosis (M) Present
[2019-08-06] MEDS ORDERED: PATIENT'S OWN MED (Alendronate Sodium [Fosamax] 70 MG) PO SCH (06:00)
== END 2019-08-01 13:33 | disposition home health service (06) ==
LOC: OR 10:27 → 4SSUR 14:40 → OR 08-01 13:33
PROVIDERS: ATTEND Orthopaedic Surgery
DX: M17.11 Unilateral primary osteoarthritis, right knee (principal); M21.161 Varus deformity, not elsewhere classified, right knee; I10 Essential (primary) hypertension; E78.2 Mixed hyperlipidemia; E11.65 Type 2 diabetes mellitus with hyperglycemia; J45.909 Unspecified asthma, uncomplicated; J98.4 Other disorders of lung; R51 Headache; R63.4 Abnormal weight loss; Z68.25 Body mass index [BMI] 25.0-25.9, adult; Z97.3 Presence of spectacles and contact lenses; J44.9 Chronic obstructive pulmonary disease, unspecified; M51.36 Other intervertebral disc degeneration, lumbar region; Z87.81 Personal history of (healed) traumatic fracture; E55.9 Vitamin D deficiency, unspecified; J45.20 Mild intermittent asthma, uncomplicated; Z90.710 Acquired absence of both cervix and uterus; Z98.890 Other specified postprocedural states; Z83.3 Family history of diabetes mellitus; Z82.49 Family history of ischemic heart disease and other diseases of the circulatory system; Z83.2 Family history of diseases of the blood and blood-forming organs and certain disorders involving the immune mechanism; Z87.891 Personal history of nicotine dependence; Z79.84 Long term (current) use of oral hypoglycemic drugs; Z79.1 Long term (current) use of non-steroidal anti-inflammatories (NSAID); Z79.51 Long term (current) use of inhaled steroids; Z79.899 Other long term (current) drug therapy; Z79.891 Long term (current) use of opiate analgesic; Z88.2 Allergy status to sulfonamides; Z88.8 Allergy status to other drugs, medicaments and biological substances; K58.9 Irritable bowel syndrome, unspecified; E03.9 Hypothyroidism, unspecified
CPT/HCPCS: 94640; 73560; 27447; J2250; J0171; J3370; J2405; J3010; J1885; J2795 ×2; J0735; 64448; 76942; 85025; 88300

== ENCOUNTER 2019-10-24 19:01 | Emergency (ER) | payer MEDICARE ==
[2019-10-24] MEDS ORDERED: MORPHINE SULFATE 4 MG/ML SYRINGE IV STA (19:23)
[2019-10-24] MEDS ORDERED: SODIUM CHLORIDE 0.9% 1,000 ML IV STA (19:23)
--- NOTE | 2019-10-24 19:46 | ED ---
Fall HPI - General Chief Complaint: Fall Stated Complaint: Fall Time Seen by Provider: 10/24/19 19:03 Source: EMS, RN notes reviewed, old records reviewed Mode of arrival: EMS - History of Present Illness Initial Comments: This is a 74-year-old female DF for evaluation of weakness fall injury she states she hit her head and back. Patient's injury O4 hours ago she was just feels little tired fatigued weak at the time. She was able to ambulate, the fall was outside her back on the grass. Sent in by family for evaluation regarding weakness MD Complaint: fall -: hour(s) Fall From: standing When Fall Occurred: 4-6 hours [employer] Fall Witnessed: yes, by family Place Fall Occurred: home Loss of Consciousness: none Prolonged Down Time?: no Location: head Severity: mild Severity scale (1-10): 1 Context: tripped/slipped Associated Symptoms: denies - Related Data Home Medications Medication Instructions Recorded Confirmed Budesonide/Formoterol Fumarate 2 puff INHALATION RT-BID 07/09/13 10/24/19 [Symbicort 160-4.5 Mcg Inhaler] Omeprazole 20 mg PO AC-BRKFST 07/09/13 10/24/19 Cholecalciferol [Vitamin D3] 1,000 mg PO DAILY 09/06/13 10/24/19 Multivitamins, Thera [Multivitamin] 1 tab PO DAILY 09/06/13 10/24/19 Alendronate Sodium [Fosamax] 70 mg PO GRISSOM 07/10/19 10/24/19 Dicyclomine [Bentyl] 20 mg PO TID 07/10/19 10/24/19 Ezetimibe [Zetia] 10 mg PO DAILY 07/10/19 10/24/19 Meloxicam [Mobic] 15 mg PO DAILY 07/10/19 10/24/19 lisinopriL [Zestril] 5 mg PO DAILY 07/10/19 10/24/19 metFORMIN HCL [Glucophage] 500 mg PO BID 07/10/19 10/24/19 Aspirin [Adult Low Dose Aspirin EC] 81 mg PO DAILY 10/24/19 10/24/19 amLODIPine [Norvasc] 5 mg PO DAILY 10/24/19 10/24/19 Allergies Allergy/AdvReac Type Severity Reaction Status Date / Time sulfamethoxazole Allergy Nausea & Verified 10/24/19 20:45 [From Bactrim] Vomiting Review of Systems ROS Statement: Those systems with pertinent positive or pertinent negative responses have been documented in the HPI. ROS Other: All systems not noted in ROS Statement are negative. Past Medical History Past Medical History: Asthma, Chest Pain / Angina, GERD/Reflux, Hyperlipidemia, Thyroid Disorder Additional Past Medical History / Comment(s): nodules on thyroid History of Any Multi-Drug Resistant Organisms: None Reported Past Surgical History: Appendectomy, Cholecystectomy, Hysterectomy, Orthopedic Surgery, Tonsillectomy Additional Past Surgical History / Comment(s): CARPAL TUNNEL, BLADDER SUSPENSION, rt knee surgery Past Anesthesia/Blood Transfusion Reactions: No Reported Reaction Past Psychological History: No Psychological Hx Reported Smoking Status: Former smoker Past Alcohol Use History: None Reported Past Drug Use History: None Reported - Past Family History Mother Family Medical History: Cancer, Diabetes Mellitus Father Family Medical History: CVA/TIA, Diabetes Mellitus General Exam Limitations: no limitations General appearance: alert, in no apparent distress Head exam: Present: atraumatic, normocephalic, normal inspection Eye exam: Present: normal appearance, PERRL, EOMI. Absent: scleral icterus, conjunctival injection, periorbital swelling ENT exam: Present: normal exam, mucous membranes moist Neck exam: Present: normal inspection. Absent: tenderness, meningismus, lymphadenopathy Respiratory exam: Present: normal lung sounds bilaterally. Absent: respiratory distress, wheezes, rales, rhonchi, stridor Cardiovascular Exam: Present: regular rate, normal rhythm, normal heart sounds. Absent: systolic murmur, diastolic murmur, rubs, gallop, clicks GI/Abdominal exam: Present: soft, normal bowel sounds. Absent: distended, tenderness, guarding, rebound, rigid Extremities exam: Present: normal inspection, full ROM, normal capillary refill. Absent: tenderness, pedal edema, joint swelling, calf tenderness Back exam: Present: normal inspection Neurological exam: Present: alert, oriented X3, CN II-XII intact Psychiatric exam: Present: normal affect, normal mood Skin exam: Present: warm, dry, intact, normal color. Absent: rash Course Vital Signs 10/24/19 10/24/19 10/24/19 19:03 20:08 20:43 Temperature 98.5 F 98.0 F Pulse Rate 90 82 87 Respiratory 17 16 16 Rate Blood Pressure 130/78 141/84 137/86 O2 Sat by Pulse 98 97 95 Oximetry - Reevaluation(s) Reevaluation #1: Medical record is reviewed Patient symptoms improved feels well Patient informed of results, questions answered Patient feels good for discharge Medical Decision Making - Medical Decision Making 74 female DF for evaluation, weakness, patient's symptoms lab findings are appropriate, no acute disease, no complaints - Lab Data Result diagrams: 10/24/19 19:36 10/24/19 19:36 Lab Results 10/24/19 10/24/19 10/24/19 Range/Units 19:36 19:36 19:36 WBC 7.8 (3.8-10.6) k/uL RBC 4.40 (3.80-5.40) m/uL Hgb 12.0 (11.4-16.0) gm/dL Hct 35.8 (34.0-46.0) % MCV 81.4 D (80.0-100.0) fL MCH 27.2 (25.0-35.0) pg MCHC 33.4 (31.0-37.0) g/dL RDW 14.0 (11.5-15.5) % Plt Count 397 (150-450) k/uL Neutrophils % 67 % Lymphocytes % 18 % Monocytes % 9 % Eosinophils % 3 % Basophils % 1 % Neutrophils # 5.3 (1.3-7.7) k/uL Lymphocytes # 1.4 (1.0-4.8) k/uL Monocytes # 0.7 (0-1.0) k/uL Eosinophils # 0.3 (0-0.7) k/uL Basophils # 0.1 (0-0.2) k/uL PT 9.9 (9.0-12.0) sec INR 0.9 (<1.2) APTT 24.4 (22.0-30.0) sec Sodium 121 L (137-145) mmol/L Potassium 4.7 (3.5-5.1) mmol/L Chloride 88 L (98-107) mmol/L Carbon Dioxide 22 (22-30) mmol/L Anion Gap 11 mmol/L BUN 14 (7-17) mg/dL Creatinine 0.43 L (0.52-1.04) mg/dL Est GFR (CKD-EPI)AfAm >90 (>60 ml/min/1.73 sqM) Est GFR (CKD-EPI)NonAf >90 (>60 ml/min/1.73 sqM) Glucose 90 (74-99) mg/dL Lactic Ac Sepsis Rflx Plasma Lactic Acid Mark (0.7-2.0) mmol/L Calcium 9.5 (8.4-10.2) mg/dL Phosphorus 3.1 (2.5-4.5) mg/dL Magnesium 1.3 L (1.6-2.3) mg/dL Total Bilirubin 0.5 (0.2-1.3) mg/dL AST 32 (14-36) U/L ALT 23 (4-34) U/L Alkaline Phosphatase 72 (38-126) U/L Creatine Kinase 201 H (30-135) U/L Troponin I (0.000-0.034) ng/mL Total Protein 6.5 (6.3-8.2) g/dL Albumin 4.3 (3.5-5.0) g/dL 10/24/19 10/24/19 10/24/19 Range/Units 19:36 19:36 20:05 WBC (3.8-10.6) k/uL RBC (3.80-5.40) m/uL Hgb (11.4-16.0) gm/dL Hct (34.0-46.0) % MCV (80.0-100.0) fL MCH (25.0-35.0) pg MCHC (31.0-37.0) g/dL RDW (11.5-15.5) % Plt Count (150-450) k/uL Neutrophils % % Lymphocytes % % Monocytes % % Eosinophils % % Basophils % % Neutrophils # (1.3-7.7) k/uL Lymphocytes # (1.0-4.8) k/uL Monocytes # (0-1.0) k/uL Eosinophils # (0-0.7) k/uL Basophils # (0-0.2) k/uL PT (9.0-12.0) sec INR (<1.2) APTT (22.0-30.0) sec Sodium (137-145) mmol/L Potassium (3.5-5.1) mmol/L Chloride (98-107) mmol/L Carbon Dioxide (22-30) mmol/L Anion Gap mmol/L BUN (7-17) mg/dL Creatinine (0.52-1.04) mg/dL Est GFR (CKD-EPI)AfAm (>60 ml/min/1.73 sqM) Est GFR (CKD-EPI)NonAf (>60 ml/min/1.73 sqM) Glucose (74-99) mg/dL Lactic Ac Sepsis Rflx Y Plasma Lactic Acid Mark 2.1 H* (0.7-2.0) mmol/L Calcium (8.4-10.2) mg/dL Phosphorus (2.5-4.5) mg/dL Magnesium (1.6-2.3) mg/dL Total Bilirubin (0.2-1.3) mg/dL AST (14-36) U/L ALT (4-34) U/L Alkaline Phosphatase (38-126) U/L Creatine Kinase (30-135) U/L Troponin I <0.012 (0.000-0.034) ng/mL Total Protein (6.3-8.2) g/dL Albumin (3.5-5.0) g/dL - EKG Data -: EKG Interpreted by Me (EKG is sinus rate 87 rhythm DE 176 QRS 84 QTc 428) - Radiology Data Radiology results: report reviewed (CT brain chest and pelvis x-ray negative for acute disease), image reviewed Disposition Clinical Impression: Fall Disposition: HOME SELF-CARE Condition: Good Instructions (If sedation given, give patient instructions): Fall Prevention for Older Adults (ED) Is patient prescribed a controlled substance at d/c from ED?: No Referrals: Dave Birmingham DO [Primary Care Provider] - 1-2 days
[2019-10-24 19:54] LABS: Basophils # (A) 0.1 k/uL (0-0.2); Basophils % (A) 1 %; Eosinophils # (A) 0.3 k/uL (0-0.7); Eosinophils % (A) 3 %; HCT 35.8 % (34.0-46.0); Lymphocytes # (A) 1.4 k/uL (1.0-4.8); Lymphocytes % (A) 18 %; MCH 27.2 pg (25.0-35.0); MCHC 33.4 g/dL (31.0-37.0); Mean Platelet Volume 6.5; Monocytes # (A) 0.7 k/uL (0-1.0); Monocytes % (A) 9 %; Neutrophils # (A) 5.3 k/uL (1.3-7.7); Neutrophils % (A) 67 %; Platelet Count 397 k/uL (150-450); WBC 7.8 k/uL (3.8-10.6)
[2019-10-24 19:55] LABS: MCV 81.4 fL (80.0-100.0)
[2019-10-24 19:56] LABS: INR 0.9 (<1.2); Partial Thromboplastin Time 24.4 sec (22.0-30.0); Prothrombin Time 9.9 sec (9.0-12.0)
[2019-10-24 19:58] LABS: ALT 23 U/L (4-34); AST 32 U/L (14-36); African American GFR (CKD) >90 (>60 ml/min/1.73 sqM); Albumin 4.3 g/dL (3.5-5.0); Alkaline Phosphatase 72 U/L (38-126); Anion Gap 11 mmol/L; Blood Urea Nitrogen 14 mg/dL (7-17); Calcium 9.5 mg/dL (8.4-10.2); Carbon Dioxide 22 mmol/L (22-30); Chloride 88 mmol/L (98-107); Creatine Kinase 201 U/L (30-135); Glucose 90 mg/dL (74-99); Magnesium 1.3 mg/dL (1.6-2.3); Non-African American GFR(CKD) >90 (>60 ml/min/1.73 sqM); Phosphorus 3.1 mg/dL (2.5-4.5); Potassium 4.7 mmol/L (3.5-5.1); Sodium 121 mmol/L (137-145); Total Bilirubin 0.5 mg/dL (0.2-1.3); Total Protein 6.5 g/dL (6.3-8.2)
--- NOTE | 2019-10-24 20:08 | CT ---
EXAMINATION TYPE: CT brain elie clifford con DATE OF EXAM: 10/24/2019 COMPARISON: None HISTORY: Fall. Headache. Pain CT DLP: 1271.2 mGycm Automated exposure control for dose reduction was used. Cervical vertebra have normal alignment. There is narrowing of disc spaces from C4 to T1 with spurrin g of the endplates. There is multilevel hypertrophic facet arthropathy. The skull base is intact. The prevertebral soft tissues appear intact. There is fairly normal aeration of the mastoid sinuses. Sku ll base is intact. There is mild cerebral atrophy. There is no mass effect nor midline shift. There is no sign of intrac ranial hemorrhage. The calvarium is intact. IMPRESSION: No acute intracranial abnormality. Mild atrophy. Spondylotic changes in the mid and lower cervical spine. No fracture seen.
--- NOTE | 2019-10-24 20:15 | XR ---
EXAMINATION TYPE: XR chest 2V DATE OF EXAM: 10/24/2019. COMPARISON: 07/26/2019 HISTORY: Weakness. Fall today. Pain. TECHNIQUE: 2 views FINDINGS: heart and mediastinum are within normal limits. There are old multiple right upper posterior healed rib fractures. There is no pleural effusion or pneumothorax. Lungs are clear of infiltrate. There are chest leads. Thoracic spine shows degenerative spur formation and slight anterior wedging o f a few mid thoracic vertebra. IMPRESSION: Evidence of old fractures. No active cardiopulmonary disease. Heart and lungs unchanged c ompared to old exam.
--- NOTE | 2019-10-24 20:16 | XR ---
EXAMINATION TYPE: XR pelvis AP view DATE OF EXAM: 10/24/2019 COMPARISON: NONE HISTORY: Pain TECHNIQUE: Single view FINDINGS: The pelvic ring is intact. Proximal femurs and hip joints are intact. Sacroiliac joints laci ear intact. There are fluid was in the pelvis. IMPRESSION: No acute abnormality of the pelvis. No fracture.
[2019-10-24 20:44] VITALS: RESP 16
[2019-10-24 20:46] VITALS: BP 137/86; PULSE 87; TEMP 98
== END 2019-10-24 21:16 | disposition home or self-care (01) ==
LOC: EC 19:01
DX: Z04.3 Encounter for examination and observation following other accident (principal); J45.909 Unspecified asthma, uncomplicated; K21.9 Gastro-esophageal reflux disease without esophagitis; E78.5 Hyperlipidemia, unspecified; Z79.51 Long term (current) use of inhaled steroids; Z79.1 Long term (current) use of non-steroidal anti-inflammatories (NSAID); Z79.82 Long term (current) use of aspirin; Z79.84 Long term (current) use of oral hypoglycemic drugs; Z79.899 Other long term (current) drug therapy; Z88.1 Allergy status to other antibiotic agents; Z88.2 Allergy status to sulfonamides; Z87.891 Personal history of nicotine dependence
CPT/HCPCS: 36415; 93005; 80053; 82550; 83605; 83735; 84100; 84484; 85025; 85610; 85730; 72170; 71046; 72125; 70450; 99285; 96374; J2270

== ENCOUNTER → 2020-01-11 | Outpatient (CLI) | payer MEDICARE ==
--- NOTE | 2020-01-11 14:21 | XR ---
Fourth digit right hand HISTORY: Trauma one week prior To views of the fourth digit of the right hand Osteoarthritic changes present at the distal interphalangeal joints of the fourth and fifth digits. A lignment is maintained. Bone mineralization is reduced. Soft tissue swelling noted at the proximal in terphalangeal joint of the fourth digit of the right hand. Arthropathy also noted in the right wrist. IMPRESSION: No fracture or dislocation. Osteoarthritis.
== END | disposition home or self-care (01) ==
LOC: RADXRYALE 11:36
PROVIDERS: ATTEND Physician Assistant
DX: M19.041 Primary osteoarthritis, right hand (principal)

== ENCOUNTER → 2020-08-09 | Outpatient (CLI) | payer MEDICARE ==
--- NOTE | 2020-08-10 06:40 | US ---
EXAMINATION TYPE: US carotid duplex BILAT DATE OF EXAM: 08/09/2020 COMPARISON: NONE CLINICAL HISTORY: G31.84 Mild cognitive impairment,E78.2 Mixed hyperlip,E11.65. Syncope EXAM MEASUREMENTS: RIGHT: Peak Systolic Velocity (PSV) cm/sec ----- Right CCA: 70.3 ----- Right ICA: 118.5 ----- Right ECA: 67.7 ICA/CCA ratio: 1.7 RIGHT: End Diastole cm/sec ----- Right CCA: 17.1 ----- Right ICA: 39.6 ----- Right ECA: 0.0 LEFT: Peak Systolic Velocity (PSV) cm/sec ----- Left CCA: 52.9 ----- Left ICA: 210.7 ----- Left ECA: 122.1 ICA/CCA ratio: 4.0 LEFT: End Diastole cm/sec ----- Left CCA: 13.6 ----- Left ICA: 65.8 ----- Left ECA: 12.3 VERTEBRALS (direction of flow): Right Vertebral: Antegrade Left Vertebral: Antegrade Rhythm: Normal Elevated velocities left ICA, ?tortuous vs. stenosis Ladd scale images show mild diffuse peripheral plaque but elevated velocities and ratios particularly on the left are identified. Sometimes noncalcified plaque may not be well seen on ultrasound. IMPRESSION: Increased velocities particularly left internal carotid artery. Cannot entirely exclude significant stenosis. Advise CTA of the neck follow-up to further evaluate. Criteria for Assigning % of Stenosis / Diameter reduction (Estimation based on the indirect measurements of the internal carotid artery velocities (ICA PSV). 1. Normal (no stenosis)=ICA PSV < 125 cm/s: ratio < 2.0: ICA EDV<40 cm/s. 2. Less than 50% stenosis=ICA PSV < 125 cm/s: ratio < 2.0: ICA EDV<40 cm/s. 3. 50 to 69% stenosis=ICA PSV of 125 to 230 cm/s: ration 2.0 ? 4.0: ICA EDV 40-100 cm/s. 4. Greater than 70% stenosis to near occlusion= ICA PSV > 230 cm/s: ratio > 4.0: ICA EDV > 100 cm/s. 5. Near occlusion= ICA PSV velocities may be low or undetectable: variable ratio and ICA EDV. 6. Total occlusion=unable to detect flow.
--- NOTE | 2020-08-10 06:50 | CT ---
EXAMINATION TYPE: CT brain wo con DATE OF EXAM: 08/09/2020 HISTORY: mild cognitive impairment CT DLP: 1087.10 mGycm. Automated Exposure Control for Dose Reduction was Utilized. TECHNIQUE: CT scan of the head is performed without contrast. COMPARISON: CT brain October 24, 2019. FINDINGS: There is no acute intracranial hemorrhage or midline shift identified. There is mild diff use ventricular and sulcal prominence consistent with diffuse age-related cerebral atrophy. There is mild low-attenuation in the periventricular white matter consistent with chronic small vessel ischem ic change. Nasal septum redemonstrated deviated to right of midline. The globes are intact and the vi sualized sinuses are clear. IMPRESSION: No acute intracranial hemorrhage or midline shift. There is mild diffuse age-related ce rebral atrophy and chronic small vessel ischemic change redemonstrated. No significant change from pr ior.
== END | disposition home or self-care (01) ==
LOC: RADCTMAIN 16:28
PROVIDERS: ATTEND Family Medicine
DX: G31.84 Mild cognitive impairment of uncertain or unknown etiology (principal); I67.82 Cerebral ischemia; I65.22 Occlusion and stenosis of left carotid artery
CPT/HCPCS: 70450; 93880

== ENCOUNTER → 2020-08-14 | Outpatient (CLI) | payer MEDICARE ==
--- NOTE | 2020-08-15 10:27 | MM ---
Reason for exam: screening (asymptomatic). Last mammogram was performed 1 year and 9 months ago. History: Patient is postmenopausal. Benign excisional biopsy of the left breast, 2000. Took estrogen for 10 years beginning at age 48. Physical Findings: A clinical breast exam by your physician is recommended on an annual basis and results should be correlated with mammographic findings. MG 3D Screening Mammo W/Cad Bilateral CC and MLO view(s) were taken. XCCL view(s) were taken of the right breast. Prior study comparison: November 21, 2018, bilateral MG 3d screening mammo w/cad. November 01, 2017, bilateral MG 3d screening mammo w/cad. There are scattered fibroglandular densities. ASSESSMENT: Negative, BI-RAD 1 RECOMMENDATION: Routine screening mammogram of both breasts in 1 year.
== END | disposition home or self-care (01) ==
LOC: RADMAMWWP 09:53
PROVIDERS: ATTEND Family Medicine
DX: Z12.31 Encounter for screening mammogram for malignant neoplasm of breast (principal); Z78.0 Asymptomatic menopausal state
CPT/HCPCS: 77063; 77067

== ENCOUNTER → 2020-09-04 | Outpatient (CLI) | payer MEDICARE ==
[2020-09-04 09:13] LABS: African American GFR (CKD) >90 (>60 ml/min/1.73 sqM); Anion Gap 6 mmol/L; Blood Urea Nitrogen 13 mg/dL (7-17); Calcium 10.1 mg/dL (8.4-10.2); Carbon Dioxide 32 mmol/L (22-30); Chloride 93 mmol/L (98-107); Glucose 112 mg/dL (74-99); Non-African American GFR(CKD) >90 (>60 ml/min/1.73 sqM); Sodium 131 mmol/L (137-145)
--- NOTE | 2020-09-04 10:46 | CT ---
EXAMINATION TYPE: CT angio head DATE OF EXAM: 09/04/2020 COMPARISON: 08/09/2020 HISTORY: Occlusion and stenosis of carotid artery CT DLP: 2124 mGycm CONTRAST: CTA kaw of Stewart with 3-D reconstruction is performed and without and with IV Contrast, patient i njected with 100 ml mL of Isovue 370. Contrast CTA of the kaw of Stewart was performed 3-D reconstruction imaging obtained at a separate workstation. Vertebrobasilar system as well as intracranial portions of the internal carotid arterie s and their major tributaries are patent. I do not see evidence for sizable aneurysm or vascular mal formation. Please note MRI provides greater sensitivity and specificity. Visualized brain appears g rossly unremarkable. IMPRESSION: No evidence for sizable aneurysm or vascular malformation.
== END | disposition home or self-care (01) ==
LOC: RADCTMAIN 07:50
PROVIDERS: ATTEND Family Medicine
DX: I65.29 Occlusion and stenosis of unspecified carotid artery (principal)
CPT/HCPCS: 80048; 70496; 36415; Q9967

== ENCOUNTER 2020-11-17 19:26 | Inpatient (IN) | payer MEDICARE ==
[2020-11-17] MEDS ORDERED: SODIUM CHLORIDE 0.9% 500 ML 500 ML IV ONE (19:31)
--- NOTE | 2020-11-17 19:53 | ED ---
Altered Mental Status HPI - General Stated Complaint: Altered Mental Status Time Seen by Provider: 11/17/20 19:28 Source: patient, EMS Mode of arrival: EMS Limitations: no limitations - History of Present Illness Initial Comments: Patient presents with altered mental status according to family. There is no one in attendance to provide any further information. Patient doesn't answer questions this time.. - Related Data Home Medications Medication Instructions Recorded Confirmed Budesonide/Formoterol Fumarate 2 puff INHALATION RT-BID 07/09/13 10/24/19 [Symbicort 160-4.5 Mcg Inhaler] Omeprazole 20 mg PO AC-BRKFST 07/09/13 10/24/19 Cholecalciferol [Vitamin D3] 1,000 mg PO DAILY 09/06/13 10/24/19 Multivitamins, Thera [Multivitamin] 1 tab PO DAILY 09/06/13 10/24/19 Alendronate Sodium [Fosamax] 70 mg PO GRISSOM 07/10/19 10/24/19 Dicyclomine [Bentyl] 20 mg PO TID 07/10/19 10/24/19 Ezetimibe [Zetia] 10 mg PO DAILY 07/10/19 10/24/19 Meloxicam [Mobic] 15 mg PO DAILY 07/10/19 10/24/19 lisinopriL [Zestril] 5 mg PO DAILY 07/10/19 10/24/19 metFORMIN HCL [Glucophage] 500 mg PO BID 07/10/19 10/24/19 Aspirin [Adult Low Dose Aspirin EC] 81 mg PO DAILY 10/24/19 10/24/19 amLODIPine [Norvasc] 5 mg PO DAILY 10/24/19 10/24/19 Allergies Allergy/AdvReac Type Severity Reaction Status Date / Time sulfamethoxazole Allergy Nausea & Verified 11/17/20 19:40 [From Bactrim] Vomiting Review of Systems ROS Statement: Those systems with pertinent positive or pertinent negative responses have been documented in the HPI. ROS Other: All systems not noted in ROS Statement are negative. Past Medical History Past Medical History: Asthma, Chest Pain / Angina, GERD/Reflux, Hyperlipidemia, Thyroid Disorder Additional Past Medical History / Comment(s): nodules on thyroid History of Any Multi-Drug Resistant Organisms: None Reported Past Surgical History: Appendectomy, Cholecystectomy, Hysterectomy, Orthopedic S urgery, Tonsillectomy Additional Past Surgical History / Comment(s): CARPAL TUNNEL, BLADDER SUSPENSION, rt knee surgery Past Anesthesia/Blood Transfusion Reactions: No Reported Reaction Past Psychological History: No Psychological Hx Reported Smoking Status: Former smoker Past Alcohol Use History: None Reported Past Drug Use History: None Reported - Past Family History Mother Family Medical History: Cancer, Diabetes Mellitus Father Family Medical History: CVA/TIA, Diabetes Mellitus General Exam Limitations: altered mental status General appearance: lethargic, obtunded Head exam: Present: atraumatic Eye exam: Present: normal appearance Pupils: Present: normal accommodation ENT exam: Present: normal exam Neck exam: Present: normal inspection Respiratory exam: Present: normal lung sounds bilaterally Cardiovascular Exam: Present: regular rate, normal rhythm GI/Abdominal exam: Present: soft. Absent: tenderness Extremities exam: Present: normal inspection. Absent: tenderness Back exam: Present: normal inspection Neurological exam: Present: altered Course Vital Signs 11/17/20 19:37 Temperature 100.0 F H Pulse Rate 105 H Respiratory 20 Rate Blood Pressure 127/85 O2 Sat by Pulse 90 L Oximetry Medical Decision Making - Medical Decision Making Patient presents with altered mental status. The differential is broad. She will require admission to the hospital. 11/17/20 19:56 Twelve-lead EKG shows ventricular rate 103 bpm, normal OR interval and QRS complexes, no ST elevation or depression, interpreted by me as sinus tachycardia. 11/17/20 19:56 Disposition Clinical Impression: Altered mental status Disposition: ADMITTED IP TO THIS [facility] Condition: Fair Instructions (If sedation given, give patient instructions): Altered Mental Status (ED) Is patient prescribed a controlled substance at d/c from ED?: No Referrals: Dave Birmingham DO [Primary Care Provider] - 1-2 days
--- NOTE | 2020-11-17 20:24 | XR ---
EXAMINATION TYPE: XR chest 2V DATE OF EXAM: 11/17/2020 COMPARISON: 10/24/2019 HISTORY: Weakness TECHNIQUE: FINDINGS: There is no heart failure nor confluent pneumonic infiltrate. Costophrenic angles are clear . Heart size is normal. There are multiple old right-sided healed rib fractures. There is no pleural effusion. Thoracic spine is intact. IMPRESSION: No active cardiopulmonary disease. No change.
--- NOTE | 2020-11-17 20:33 | CT ---
EXAMINATION TYPE: CT brain wo con DATE OF EXAM: 11/17/2020 COMPARISON: 08/09/2020 HISTORY: Altered mental status. CT DLP: 1099.4 mGycm Automated exposure control for dose reduction was used. There is cerebral cortical atrophy. There is no mass effect nor midline shift. There is no sign of in tracranial hemorrhage. There is hypodensity in the periventricular white matter. Calvarium is intact. IMPRESSION: Cerebral atrophy. No acute intracranial abnormality. No change compared to old exam.
[2020-11-17] MEDS ORDERED: TEMAZEPAM 15 MG CAP PO PRN (20:37)
[2020-11-17] MEDS ORDERED: NALOXONE 0.4 MG/ML 1 ML VIAL IV PRN (20:37)
[2020-11-17] MEDS ORDERED: Acetaminophen-Codeine 300-30mg TAB PO PRN (20:37)
[2020-11-17] MEDS ORDERED: MAG HYDROX/AL HYDROX/SIMETH 30 ML CUP PO PRN (20:37)
[2020-11-17] MEDS ORDERED: ONDANSETRON 4 MG/2 ML VIAL IVP PRN (20:37)
[2020-11-17 20:42] LABS: HCT 38.9 % (34.0-46.0); HGB 13.4 gm/dL (11.4-16.0); MCH 29.4 pg (25.0-35.0); MCHC 34.5 g/dL (31.0-37.0); MCV 85.1 fL (80.0-100.0); Mean Platelet Volume 7.7; Platelet Count 473 k/uL (150-450); RBC 4.57 m/uL (3.80-5.40); RDW 14.3 % (11.5-15.5); WBC 34.4 k/uL (3.8-10.6)
[2020-11-17 20:45] LABS: Partial Thromboplastin Time 22.9 sec (22.0-30.0); Prothrombin Time 10.5 sec (9.0-12.0)
[2020-11-17 21:32] LABS: ALT 28 U/L (4-34); AST 32 U/L (14-36); African American GFR (CKD) 31 (>60 ml/min/1.73 sqM); Albumin 3.6 g/dL (3.5-5.0); Alcohol <10 mg/dL; Alkaline Phosphatase 222 U/L (38-126); Anion Gap 13 mmol/L; Blood Urea Nitrogen 67 mg/dL (7-17); Calcium 9.3 mg/dL (8.4-10.2); Carbon Dioxide 21 mmol/L (22-30); Chloride 92 mmol/L (98-107); Creatine Kinase 33 U/L (30-135); Glucose 247 mg/dL (74-99); Non-African American GFR(CKD) 26 (>60 ml/min/1.73 sqM); Potassium 5.2 mmol/L (3.5-5.1); Sodium 126 mmol/L (137-145); Total Bilirubin 1.1 mg/dL (0.2-1.3); Total Protein 6.9 g/dL (6.3-8.2)
[2020-11-17 21:48] LABS: Amorphous Sediment,Urine Rare /hpf; Appearance,Urine Cloudy (Clear); Bacteria,Urine Occasional /hpf; Bilirubin,Urine Negative (Negative); Blood,Urine Small (Negative); Color,Urine Yellow; Glucose,Urine (UA) Negative (Negative); Ketones,Urine Negative (Negative); Leukocyte Esterase,Urine Large (Negative); Nitrite,Urine Negative (Negative); PH, Urine 5.5 (5.0-8.0); Protein,Urine 1+ (Negative); RBC,Urine 3 /hpf (0-5); Specific Gravity,Urine 1.011 (1.001-1.035); Squamous Epithelial Cell,Urine <1 /hpf (0-4); Urobilinogen,Urine <2.0 mg/dL (<2.0); WBC,Urine >182 /hpf (0-5)
[2020-11-17 21:49] LABS: Amphetamine Screen,Urine Not Detected (NotDetected); Barbiturate Screen,Urine Not Detected (NotDetected); Benzodiazepines Screen,Urine Not Detected (NotDetected); Cocaine Screen,Urine Not Detected (NotDetected); Methadone Screen, Urine Not Detected (NotDetected); Opiate Screen,Urine Not Detected (NotDetected); Oxycodone Screen, Urine Not Detected (NotDetected); Phencyclidine Screen,Urine Not Detected (NotDetected); Tricyclic Antidepressant,Urine Not Detected (NotDetected); Urn Cannabinoid Scrn Not Detected (NotDetected)
[2020-11-17] MEDS ORDERED: NON FORMULARY DRUG (Alendronate Sodium [Fosamax] 70 MG Tablet) PO SCH (22:00)
[2020-11-17 22:08] LABS: Eosinophils # (M) 1.38 k/uL (0-0.7); Nucleated Red Blood Cells 0 /100 WBC (0-0); Total Cells Counted 100
[2020-11-17] MEDS: metFORMIN 500 MG TAB PO SCH (22:22)
[2020-11-17 22:28] LABS: Neutrophils % (M) 87 %
[2020-11-17 22:29] LABS: Band Neutrophils % 5 %; Lymphocytes # (M) 0.69 k/uL (1.0-4.8); Metamyelocytes # (M) 0.34 k/uL (0); Metamyelocytes % 1 %; Monocytes # (M) 1.03 k/uL (0-1.0); Myelocytes # (M) 0.69 k/uL (0); Myelocytes % 2 %
[2020-11-18] MEDS ORDERED: lisinopriL 5 MG TAB PO SCH (09:00)
[2020-11-18] MEDS ORDERED: MELOXICAM 7.5 MG TAB PO SCH (09:00)
[2020-11-18] MEDS: ASPIRIN 81 MG PO SCH (09:40)
[2020-11-18] MEDS: amLODIPine 5 MG TAB PO SCH (09:40)
[2020-11-18] MEDS: metFORMIN 500 MG TAB PO SCH (09:55)
--- NOTE | 2020-11-18 11:52 | P.HPIM ---
History of Present Illness Patient is 75-year-old female was brought in by family because of altered mental status. Patient is alert oriented times around 2-3. This appears to be her baseline. Patient lives with her daughter. Patient is found to have fever and white blood cell count patient denied any symptoms of UTI denied any cough. Chest x-ray is within normal limits urine is significantly abnormal with highly elevated white blood cell count because of which patient is being admitted for urinary tract infection and patient is presently on Rocephin patient is also found to have acute renal failure with creatinine of 1.85 baseline is within normal limits and the patient is hyponatremic as well. Patient is requesting to go home. She is able to provide good history to me. REVIEW OF SYSTEMS: CONSTITUTIONAL: No fever, no malaise, no fatigue. HEENT: No recent visual problems or hearing problems. Denied any sore throat. CARDIOVASCULAR: No chest pain, orthopnea, PND, no palpitations, no syncope. PULMONARY: No shortness of breath, no cough, no hemoptysis. GASTROINTESTINAL: No diarrhea, no nausea, no vomiting, no abdominal pain. NEUROLOGICAL: No headaches, no weakness, no numbness. HEMATOLOGICAL: Denies any bleeding or petechiae. GENITOURINARY: Denies any burning micturition, frequency, or urgency. MUSCULOSKELETAL/RHEUMATOLOGICAL: Denies any joint pain, swelling, or any muscle pain. ENDOCRINE: Denies any polyuria or polydipsia. The rest of the 14-point review of systems is negative. PHYSICAL EXAMINATION: GENERAL: The patient is alert and oriented x3, not in any acute distress. Well developed, well nourished. HEENT: Pupils are round and equally reacting to light. EOMI. No scleral icterus. No conjunctival pallor. Normocephalic, atraumatic. No pharyngeal erythema. No thyromegaly. CARDIOVASCULAR: S1 and S2 present. No murmurs, rubs, or gallops. PULMONARY: Chest is clear to auscultation, no wheezing or crackles. ABDOMEN: Soft, nontender, nondistended, normoactive bowel sounds. No palpable organomegaly. MUSCULOSKELETAL: No joint swelling or deformity. EXTREMITIES: No cyanosis, clubbing, or pedal edema. NEUROLOGICAL: Gross neurological examination did not reveal any focal deficits. SKIN: No rashes. Assessment and plan -Severe sepsis probably cemented urinary tract infection can you with present an tibiotics awaiting urine cultures and blood cultures. - acute renal failure prerenal acute tubular necrosis expected to improve Toxic encephalopathy may be secondary to urinary tract infection [place]- hypervolemic hyponatremia can you with IV fluids -History esophageal reflux disease -Hyperlipidemia -Hypothyroidism -Possible baseline dementia, patient to delirium appears to have improved - leukocytosis secondary to severe sepsis as mentioned above -Hyperkalemia secondary to renal failure. DVT prophylaxis: Subcutaneous heparin Past Medical History Past Medical History: Asthma, Chest Pain / Angina, GERD/Reflux, Hyperlipidemia, Thyroid Disorder Additional Past Medical History / Comment(s): nodules on thyroid History of Any Multi-Drug Resistant Organisms: None Reported Past Surgical History: Appendectomy, Cholecystectomy, Hysterectomy, Orthopedic Surgery, Tonsillectomy Additional Past Surgical History / Comment(s): CARPAL TUNNEL, BLADDER SUSPENSI ON, rt knee surgery Past Anesthesia/Blood Transfusion Reactions: No Reported Reaction Past Psychological History: No Psychological Hx Reported Smoking Status: Former smoker Past Alcohol Use History: None Reported Past Drug Use History: None Reported - Past Family History Mother Family Medical History: Cancer, Diabetes Mellitus Father Family Medical History: CVA/TIA, Diabetes Mellitus Medications and Allergies Home Medications Medication Instructions Recorded Confirmed Type Budesonide/Formoterol Fumarate 2 puff INHALATION RT-BID 07/09/13 11/17/20 History [Symbicort 160-4.5 Mcg Inhaler] Omeprazole 20 mg PO DAILY 07/09/13 11/17/20 History Alendronate Sodium [Fosamax] 70 mg PO GRISSOM 07/10/19 11/17/20 History Ezetimibe [Zetia] 10 mg PO DAILY 07/10/19 11/17/20 History Meloxicam [Mobic] 15 mg PO DAILY 07/10/19 11/17/20 History lisinopriL [Zestril] 10 mg PO DAILY 07/10/19 11/17/20 History metFORMIN HCL [Glucophage] 500 mg PO BID 07/10/19 11/17/20 History traMADol HCL 50 mg PO Q4-6H PRN 11/17/20 11/17/20 History Allergies Allergy/AdvReac Type Severity Reaction Status Date / Time sulfamethoxazole AdvReac Nausea & Verified 11/18/20 08:39 [From Bactrim] Vomiting Physical Exam Vitals: Vital Signs Temp Pulse Resp BP Pulse Ox 11/18/20 06:00 93 16 138/62 95 11/18/20 03:00 92 18 139/70 95 11/17/20 22:25 95 20 141/72 98 11/17/20 19:37 100.0 F H 105 H 20 127/85 90 L Intake and Output 11/17/20 11/18/20 11/18/20 22:59 06:59 14:59 Other: Weight 44.452 kg Results CBC & Chem 7: 11/17/20 20:01 11/17/20 20:01 Labs: Abnormal Lab Results - Last 24 Hours (Table) 11/17/20 11/17/20 11/17/20 Range/Units 20:01 20:01 20:01 WBC 34.4 H (3.8-10.6) k/uL Plt Count 473 H (150-450) k/uL Neutrophils # (Manual) 31.60 H (1.3-7.7) k/uL Lymphocytes # (Manual) 0.69 L (1.0-4.8) k/uL Monocytes # (Manual) 1.03 H (0-1.0) k/uL Eosinophils # (Manual) 1.38 H (0-0.7) k/uL Metamyelocytes # (Man) 0.34 H (0) k/uL Myelocytes # (Manual) 0.69 H (0) k/uL Sodium 126 L (137-145) mmol/L Potassium 5.2 H (3.5-5.1) mmol/L Chloride 92 L (98-107) mmol/L Carbon Dioxide 21 L (22-30) mmol/L BUN 67 H (7-17) mg/dL Creatinine 1.85 H (0.52-1.04) mg/dL Glucose 247 H (74-99) mg/dL Alkaline Phosphatase 222 H (38-126) U/L Urine Appearance Cloudy H (Clear) Urine Protein 1+ H (Negative) Urine Blood Small H (Negative) Ur Leukocyte Esterase Large H (Negative) Urine WBC >182 H (0-5) /hpf Urine WBC Clumps Many H (None) /hpf Amorphous Sediment Rare H (None) /hpf Urine Bacteria Occasional H (None) /hpf
[2020-11-18] MEDS: SYMBICORT 160-4.5 MCG INHALER INHALATION SCH ×2 (12:01→20:06)
[2020-11-18] MEDS: SODIUM CHLORIDE 0.9% 1,000 ML IV SCH (12:14)
[2020-11-18] MEDS: EZETIMIBE 10 MG TAB PO SCH (12:15)
[2020-11-18 20:40] LABS: Glucose,Whole Blood 306 mg/dL (75-99)
[2020-11-18] MEDS: HEPARIN SODIUM,PORCINE/PF 5,000 UNIT/0.5 ML SYRINGE SQ SCH (20:54)
[2020-11-18] MEDS: INSULIN ASPART (NovoLOG) 100 UNIT/ML VIAL SQ SCH (20:54)
[2020-11-19] MEDS: SODIUM CHLORIDE 0.9% 1,000 ML IV SCH ×3 (00:26→19:52)
[2020-11-19 06:24] LABS: HCT 34.1 % (34.0-46.0); HGB 11.2 gm/dL (11.4-16.0); MCH 28.9 pg (25.0-35.0); MCV 87.5 fL (80.0-100.0); Mean Platelet Volume 7.6; Platelet Count 334 k/uL (150-450); RDW 13.8 % (11.5-15.5); WBC 22.6 k/uL (3.8-10.6)
[2020-11-19 06:38] LABS: African American GFR (CKD) 34 (>60 ml/min/1.73 sqM); Anion Gap 9 mmol/L; Blood Urea Nitrogen 44 mg/dL (7-17); Calcium 8.6 mg/dL (8.4-10.2); Carbon Dioxide 22 mmol/L (22-30); Chloride 97 mmol/L (98-107); Glucose 184 mg/dL (74-99); Non-African American GFR(CKD) 29 (>60 ml/min/1.73 sqM); Potassium 4.9 mmol/L (3.5-5.1); Sodium 128 mmol/L (137-145)
[2020-11-19 07:19] LABS: Glucose,Whole Blood 189 mg/dL (75-99)
[2020-11-19] MEDS: SYMBICORT 160-4.5 MCG INHALER INHALATION SCH ×2 (07:53→20:28)
[2020-11-19] MEDS: amLODIPine 5 MG TAB PO SCH (09:20)
[2020-11-19] MEDS: HEPARIN SODIUM,PORCINE/PF 5,000 UNIT/0.5 ML SYRINGE SQ SCH ×2 (09:20→20:44)
[2020-11-19] MEDS: EZETIMIBE 10 MG TAB PO SCH (09:20)
[2020-11-19] MEDS: ASPIRIN 81 MG PO SCH (09:21)
[2020-11-19] MEDS: INSULIN ASPART (NovoLOG) 100 UNIT/ML VIAL SQ SCH ×4 (09:23→20:44)
[2020-11-19 09:39] LABS: Glucose,Whole Blood 177 mg/dL (75-99)
[2020-11-19 12:10] LABS: Glucose,Whole Blood 252 mg/dL (75-99)
[2020-11-19 13:54] VITALS: BMI 18.5
--- NOTE | 2020-11-19 14:44 | P.PN ---
Subjective Progress Note Date: 11/19/20 Patient is 75-year-old female was brought in by family because of altered mental status. Patient is alert oriented times around 2-3. This appears to be her baseline. Patient lives with her daughter. Patient is found to have fever and white blood cell count patient denied any symptoms of UTI denied any cough. Chest x-ray is within normal limits urine is significantly abnormal with highly elevated white blood cell count because of which patient is being admitted for urinary tract infection and patient is presently on Rocephin patient is also found to have acute renal failure with creatinine of 1.85 baseline is within normal limits and the patient is hyponatremic as well. Patient is requesting to go home. She is able to provide good history to me. 11/19/2020 She was seen and evaluated and follow-up much more awake and alert today. Patient currently up and walking with a walker with standby assistance with physical therapy. Patient is weak although improved from yesterday. Patient co ntinues on IV ceftriaxone while awaiting for cultures to finalized. Preliminary culture showing gram-negative bacilli and will await finalization. Will also discuss with physical therapy about possible subacute rehab or returning home and Homecare. Family at the bedside asking about the continued weakness and treatment plan. questions were answered to the best of my ability. white blood count improved at 22.6 and hemoglobin is stable 11.2. Sodiumslightly improved at 128, potassium is 4.9, BUN is 44 and creatinine slightly improved at 1.71. Continue with Accu-Cheks and sliding scale before meals and at bedtime. Review of systems: Constitutional: No reports of fatigue, fever, or chills Cardiovascular: No reports of chest pain or palpitations Respiratory: No reports of shortness of breath or cough GI: No reports of nausea, vomiting, or diarrhea : No reports of dysuria or retention Neurovascular: No reports of weakness or numbness All medications have been reviewed Active Medications Acetaminophen/Codeine Phosphate (Acetaminophen-Codeine 300-30mg Tab) 1 each PO Q4HR PRN PRN Reason: Moderate Pain Al Hydroxide/Mg Hydroxide (Mag Hydrox/Al Hydrox/Simeth 30 Ml Cup) 15 ml PO Q6HR PRN PRN Reason: Indigestion Amlodipine Besylate (Amlodipine 5 Mg Tab) 5 mg PO DAILY KIMANI Last Admin: 11/19/20 09:20 Dose: 5 mg Documented by: Aspirin (Aspirin 81 Mg) 81 mg PO DAILY [facility] Last Admin: 11/19/20 09:21 Dose: 81 mg Documented by: Budesonide/Formoterol Fumarate (Symbicort 160-4.5 Mcg Inhaler) 2 puff INHALATION RT-BID [facility] Last Admin: 11/19/20 07:53 Dose: 2 puff Documented by: Ezetimibe (Ezetimibe 10 Mg Tab) 10 mg PO DAILY [facility] Last Admin: 11/19/20 09:20 Dose: 10 mg Documented by: Heparin Sodium (Porcine) (Heparin Sodium,Porcine/Pf 5,000 Unit/0.5 Ml Syringe) 5,000 unit SQ Q12HR [facility] Last Admin: 11/19/20 09:20 Dose: 5,000 unit Documented by: Ceftriaxone Sodium 1 gm/ (Sodium Chloride) 50 mls @ 100 mls/hr IVPB Q24HR [facility] Last Admin: 11/19/20 09:21 Dose: 100 mls/hr Documented by: Sodium Chloride (Saline 0.9%) 1,000 mls @ 100 mls/hr IV .Q10H [facility] Last Admin: 11/19/20 00:26 Dose: Not Given Documented by: Insulin Aspart (Insulin Aspart (Novolog) 100 Unit/Ml Vial) 0 unit SQ ACHS [facility]; Protocol Last Admin: 11/19/20 13:31 Dose: 4 unit Documented by: Naloxone HCl (Naloxone 0.4 Mg/Ml 1 Ml Vial) 0.2 mg IV Q2M PRN PRN Reason: Opioid Reversal Non-Formulary Medication (Alendronate Sodium [Fosamax]) 70 mg PO Reddy@0900 [facility] Last Admin: 11/17/20 22:25 Dose: Not Given Documented by: Ondansetron HCl (Ondansetron 4 Mg/2 Ml Vial) 4 mg IVP Q8HR PRN PRN Reason: Nausea And Vomiting PHYSICAL EXAMINATION: GENERAL: The patient is alert and oriented x3, not in any acute distress. Well developed, well nourished. HEENT: Pupils are round and equally reacting to light. EOMI. No scleral icterus. No conjunctival pallor. Normocephalic, atraumatic. No pharyngeal erythema. No thyromegaly. CARDIOVASCULAR: S1 and S2 present. No murmurs, rubs, or gallops. PULMONARY: Chest is clear to auscultation, no wheezing or crackles. ABDOMEN: Soft, nontender, nondistended, normoactive bowel sounds. No palpable organomegaly. MUSCULOSKELETAL: No joint swelling or deformity. EXTREMITIES: No cyanosis, clubbing, or pedal edema. NEUROLOGICAL: Gross neurological examination did not reveal any focal deficits. SKIN: No rashes. Assessment and plan: -Severe sepsis probably Secondary to urinary tract infection, patient continues on IV ceftriaxone and urine cultures preliminary showing gram-negative bacilli and will await finalization -acute renal failure prerenal acute tubular necrosis, improving and is 1.71 and will continue gentle IV hydration -Toxic encephalopathy may be secondary to urinary tract infection -hypervolemic hyponatremia, improving and is 128 today and will continue IV hydration -History of gastroesophageal reflux disease -Hyperlipidemia -Hypothyroidism -Possible baseline dementia, delirium appears to have improved -leukocytosis secondary to severe sepsis as mentioned above -Hyperkalemia secondary to renal failure. -DVT prophylaxis: Subcutaneous heparin -full code Objective - Vital Signs Vital signs: Vital Signs Temp 98.0 F 11/19/20 04:59 Pulse 95 11/19/20 04:59 Resp 18 11/19/20 04:59 BP 118/69 11/19/20 04:59 Pulse Ox 99 11/19/20 07:53 Intake & Output 11/18/20 11/19/20 11/19/20 18:59 06:59 18:59 Other: Voiding Method Toilet Bedside Commode Diaper Diaper Incontinent Incontinent # Voids 4 2 # Bowel Movements 3 - Labs CBC & Chem 7: 11/19/20 05:52 11/19/20 05:52 Labs: Abnormal Lab Results - Last 24 Hours (Table) 11/18/20 11/19/20 11/19/20 Range/Units 20:35 05:52 05:52 WBC 22.6 H (3.8-10.6) k/uL Hgb 11.2 L (11.4-16.0) gm/dL Sodium 128 L (137-145) mmol/L Chloride 97 L (98-107) mmol/L BUN 44 H (7-17) mg/dL Creatinine 1.71 H (0.52-1.04) mg/dL Glucose 184 H (74-99) mg/dL POC Glucose (mg/dL) 306 H (75-99) mg/dL 11/19/20 Range/Units 07:18 WBC (3.8-10.6) k/uL Hgb (11.4-16.0) gm/dL Sodium (137-145) mmol/L Chloride (98-107) mmol/L BUN (7-17) mg/dL Creatinine (0.52-1.04) mg/dL Glucose (74-99) mg/dL POC Glucose (mg/dL) 189 H (75-99) mg/dL Microbiology - Last 24 Hours (Table) 11/17/20 19:45 Blood Culture - Preliminary Blood No Growth after 24 hours 11/17/20 19:30 Blood Culture - Preliminary Blood No Growth after 24 hours 11/17/20 20:01 Urine Culture - Preliminary Urine,Voided
[2020-11-19 17:02] LABS: Glucose,Whole Blood 237 mg/dL (75-99)
[2020-11-19 20:22] LABS: Glucose,Whole Blood 190 mg/dL (75-99)
[2020-11-20] MEDS: SODIUM CHLORIDE 0.9% 1,000 ML IV SCH (06:21)
[2020-11-20 07:18] LABS: African American GFR (CKD) 43 (>60 ml/min/1.73 sqM); Anion Gap 8 mmol/L; Blood Urea Nitrogen 30 mg/dL (7-17); Calcium 8.6 mg/dL (8.4-10.2); Carbon Dioxide 19 mmol/L (22-30); Chloride 104 mmol/L (98-107); Glucose 167 mg/dL (74-99); Non-African American GFR(CKD) 38 (>60 ml/min/1.73 sqM); Potassium 4.8 mmol/L (3.5-5.1); Sodium 131 mmol/L (137-145)
[2020-11-20 07:22] LABS: Glucose,Whole Blood 175 mg/dL (75-99)
[2020-11-20] MEDS: INSULIN ASPART (NovoLOG) 100 UNIT/ML VIAL SQ SCH ×2 (08:24→12:59)
[2020-11-20] MEDS: HEPARIN SODIUM,PORCINE/PF 5,000 UNIT/0.5 ML SYRINGE SQ SCH (08:24)
[2020-11-20] MEDS: ASPIRIN 81 MG PO SCH (08:24)
[2020-11-20] MEDS: EZETIMIBE 10 MG TAB PO SCH (08:25)
[2020-11-20] MEDS: amLODIPine 5 MG TAB PO SCH (08:32)
[2020-11-20] MEDS: SYMBICORT 160-4.5 MCG INHALER INHALATION SCH (09:30)
[2020-11-20] MEDS ORDERED: MECLIZINE 12.5 MG TAB PO PRN (11:45)
[2020-11-20 12:04] LABS: Glucose,Whole Blood 250 mg/dL (75-99)
[2020-11-20 12:23] VITALS: BP 135/69; PULSE 69; RESP 19; TEMP 97.8
--- NOTE | 2020-11-20 13:32 | P.DS ---
Providers Date of admission: 11/17/20 20:37 Expected date of discharge: 11/20/20 Attending physician: Allyssa Luna Primary care physician: Dave Birmingham Hospital Course: Final diagnosis -Severe sepsis probably Secondary to urinary tract infection, with cultures finalizing showing E. coli -acute renal failure prerenal acute tubular necrosis, improving -Toxic encephalopathy may be secondary to urinary tract infection, improving -hypervolemic hyponatremia, improving -History of gastroesophageal reflux disease -Hyperlipidemia -Hypothyroidism -Possible baseline dementia, delirium appears to have improved -leukocytosis secondary to severe sepsis -Hyperkalemia secondary to renal failure. -DVT prophylaxis -full code Discharge disposition Patient is being discharged in a stable condition with guarded prognosis to [facility]. Patient will follow-up with Dr. Birmingham upon discharge. Patient will continue with a short course of oral antibiotics in the form of Ceftin 500 mg twice daily for the next 5 days and then may discontinue. Recommend repeat labs in 2-3 days to monitor CBC and BMP. Total time taken is greater than 35 minutes. Hospital course Patient is 75-year-old female was brought in by family because of altered mental status. Patient is alert oriented times around 2-3. This appears to be her baseline. Patient lives with her daughter. Patient is found to have fever and white blood cell count patient denied any symptoms of UTI denied any cough. Chest x-ray is within normal limits urine is significantly abnormal with highly elevated white blood cell count because of which patient is being admitted for urinary tract infection and patient is presently on Rocephin patient is also found to have acute renal failure with creatinine of 1.85 baseline is within normal limits and the patient is hyponatremic as well. Patient is requesting to go home. She is able to provide good history to me. 11/19/2020 She was seen and evaluated and follow-up much more awake and alert today. Patient currently up and walking with a walker with standby assistance with physical therapy. Patient is weak although improved from yesterday. Patient continues on IV ceftriaxone while awaiting for cultures to finalized. Preliminary culture showing gram-negative bacilli and will await finalization. Will also discuss with physical therapy about possible subacute rehab or returning home and Homecare. Family at the bedside asking about the continued weakness and treatment plan. questions were answered to the best of my ability. white blood count improved at 22.6 and hemoglobin is stable 11.2. Sodiumslig htly improved at 128, potassium is 4.9, BUN is 44 and creatinine slightly improved at 1.71. Continue with Accu-Cheks and sliding scale before meals and at bedtime. 11/20/2020 Patient is seen in follow-up this morning mentation improving patient still continues to be weak with assistance and is having some intermittent dizziness with position changes and recommend slowly getting up and sitting at the bedside for 2 minutes to getting up and continuing to use walker and assistance. Prescribed meclizine to use as needed. Patient's urine culture finalized showing E. coli with sensitivities and was started on IV ceftriaxone and we'll transition to oral Ceftin 500 mg twice daily for the next 5 days and then may discontinue. Patient normally takes metformin and will hold and recommend continuing with sliding scale and Accu-Cheks before meals and at bedtime for tighter glycemic control. Recommend repeat labs in 2-3 days to monitor kidney functions along with a downward trend of the white blood count. Recommend patient to continue with consistent carb heart healthy diet. Patient instructed to follow-up with primary care provider outpatient. Currently no reports of chest pain, shortness of breath, or palpitations. Patient is afebrile. No reports of nausea or vomiting and patient is tolerating diet. Patient is being discharged to [facility] today. GENERAL: The patient is alert and oriented x3, not in any acute distress. Well developed, well nourished. HEENT: Pupils are round and equally reacting to light. EOMI. No scleral icterus. No conjunctival pallor. Normocephalic, atraumatic. No pharyngeal erythema. No thyromegaly. CARDIOVASCULAR: S1 and S2 present. No murmurs, rubs, or gallops. PULMONARY: Chest is clear to auscultation, no wheezing or crackles. ABDOMEN: Soft, nontender, nondistended, normoactive bowel sounds. No palpable organomegaly. MUSCULOSKELETAL: No joint swelling or deformity. EXTREMITIES: No cyanosis, clubbing, or pedal edema. NEUROLOGICAL: Gross neurological examination did not reveal any focal deficits. SKIN: No rashes. Please refer to medication reconciliation sheet for a list of medications. Patient Condition at Discharge: Fair Plan - Discharge Summary New Discharge Prescriptions: New Cefuroxime Axetil [Ceftin] 500 mg PO BID 5 Days #10 tab Mag Hydrox/Al Hydrox/Simeth [Maalox] 15 ml PO Q6HR PRN ml PRN Reason: Indigestion INSULIN ASPART (NovoLOG) [NovoLOG (formulary)] 0 unit SQ ACHS ml Meclizine [Antivert] 12.5 mg PO TID PRN tab PRN Reason: Vertigo Aspirin 81 mg PO DAILY tab amLODIPine [Norvasc] 5 mg PO DAILY tab Acetaminophen Tab [Tylenol Tab] 500 mg PO Q6H PRN #30 tablet PRN Reason: Pain Continue Budesonide/Formoterol Fumarate [Symbicort 160-4.5 Mcg Inhaler] 2 puff INHALATION RT-BID Omeprazole 20 mg PO DAILY Ezetimibe [Zetia] 10 mg PO DAILY Alendronate Sodium [Fosamax] 70 mg PO GRISSOM Changed traMADol HCL 50 mg PO Q6H PRN #10 tab PRN Reason: Pain Discontinued Meloxicam [Mobic] 15 mg PO DAILY lisinopriL [Zestril] 10 mg PO DAILY metFORMIN HCL [Glucophage] 500 mg PO BID Discharge Medication List Budesonide/Formoterol Fumarate [Symbicort 160-4.5 Mcg Inhaler] 2 puff INHALATION RT-BID 07/09/13 [History] Omeprazole 20 mg PO DAILY 07/09/13 [History] Alendronate Sodium [Fosamax] 70 mg PO GRISSOM 07/10/19 [History] Ezetimibe [Zetia] 10 mg PO DAILY 07/10/19 [History] Acetaminophen Tab [Tylenol Tab] 500 mg PO Q6H PRN #30 tablet 11/20/20 [Rx] Aspirin 81 mg PO DAILY tab 11/20/20 [Rx] Cefuroxime Axetil [Ceftin] 500 mg PO BID 5 Days #10 tab 11/20/20 [Rx] INSULIN ASPART (NovoLOG) [NovoLOG (formulary)] 0 unit SQ ACHS ml 11/20/20 [Rx] Mag Hydrox/Al Hydrox/Simeth [Maalox] 15 ml PO Q6HR PRN ml 11/20/20 [Rx] Meclizine [Antivert] 12.5 mg PO TID PRN tab 11/20/20 [Rx] amLODIPine [Norvasc] 5 mg PO DAILY tab 11/20/20 [Rx] traMADol HCL 50 mg PO Q6H PRN #10 tab 11/20/20 [Rx] Follow up Appointment(s)/Referral(s): Dave Birmingham DO [Primary Care Provider] - 1-2 days Ambulatory/Diagnostic Orders: Complete Blood Count w/diff [LAB.AMB] Time Frame: 2 Days, Location: None Selected Patient Instructions/Handouts: Altered Mental Status (ED) Activity/Diet/Wound Care/Special Instructions: patient is going to [facility] Activity as tolerated Continue taking antibiotics for 5 days and then may discontinue Recommend repeat labs in 2-3 days to monitor CBC and BMP Continue sliding scale and Accu-Cheks before meals at bedtime NovoLog sliding scale 0-150 equals 0 units 151-200 equals 2 units 201-250 equals 4 units 251-300 equals 6 units 301-350 equals 8 units 351-400 equals 10 units Please notify provider if blood sugar is 400 or above Continue with heart healthy consistent carb diet Follow-up primary care provider on discharge Discharge Disposition: TRANSFER TO SNF/ECF
== END 2020-11-20 18:03 | DRG 871 ==
LOC: EC 19:26 → 4SSUR 20:37 → 5NMEDONC 11-18 21:08
PROVIDERS: ADMIT Hospitalist; ATTEND Hospitalist
DX: A41.51 Sepsis due to Escherichia coli [E. coli] (principal); G92 Toxic encephalopathy; N17.0 Acute kidney failure with tubular necrosis; E87.1 Hypo-osmolality and hyponatremia; N39.0 Urinary tract infection, site not specified; R65.20 Severe sepsis without septic shock; E03.9 Hypothyroidism, unspecified; E78.5 Hyperlipidemia, unspecified; E87.5 Hyperkalemia; E87.70 Fluid overload, unspecified; J45.909 Unspecified asthma, uncomplicated; K21.9 Gastro-esophageal reflux disease without esophagitis; Z79.1 Long term (current) use of non-steroidal anti-inflammatories (NSAID); Z79.51 Long term (current) use of inhaled steroids; Z20.822 Contact with and (suspected) exposure to COVID-19; Z79.82 Long term (current) use of aspirin; Z79.83 Long term (current) use of bisphosphonates; Z79.84 Long term (current) use of oral hypoglycemic drugs; Z79.899 Other long term (current) drug therapy; Z83.3 Family history of diabetes mellitus; Z87.891 Personal history of nicotine dependence; Z90.710 Acquired absence of both cervix and uterus
CPT/HCPCS: 36415; 70450; 71046; 80048; 80053; 80306; 80320; 81001; 82140; 82550; 84484; 85025; 85027; 85610; 85730; 87040; 87077; 87086; 87186; 87635; 93005; 94640; 94760; 99285

== ENCOUNTER → 2021-08-18 | Outpatient (CLI) | payer MEDICARE ==
--- NOTE | 2021-08-18 16:07 | BD ---
EXAMINATION TYPE: Axial Bone Density DATE OF EXAM: 08/18/2021 COMPARISON: NONE CLINICAL HISTORY: 76 years year old Female. ICD-10 CODE: M85.9 DISORDER OF BONE DENSITY Height: 58.5 Weight: 108.7 FRAX RISK QUESTIONS: Alcohol (3 or more units per day): NO Family History (Parent hip fracture): YES, FATHER AND MOTHER Glucocorticoids (More than 3mos): NO History of Fracture in Adulthood: YES Secondary Osteoporosis: 1. Type 1 Diabetes: NO 2. Hyperthyroidism: NO 3. Menopause before 45: YES 4. Malnutrition: WEIGHT LOSS 20 POUNDS PAST 2 MONTHS 5. Chronic liver disease: NO Rheumatoid Arthritis: NO Current Tobacco Use: NO RISK FACTORS HISTORY OF: Hip Fracture (Right/Left): NO Spine Fracture: NO History of Wrist Fracture: NO Surgery to Spine/Hip(right/left)/Wrist (right/left): CARPAL TUNNEL BILATERAL When: 20 YEARS Family History of Osteoporosis: YES, MOTHER, FATHER Active: NO Diet low in dairy products/other sources of calcium: NO Postmenopausal woman: YES Take estrogen and/or progesterone medications: NO Lost more than 2 inches in height since high school: YES Frequent falls: NO Poor Health: YES Hyperparathyroidism: NO Adrenal Insufficiency: NO MEDICATIONS: Prednisone or other steroids: NO Thyroid Medications: NO Osteoporosis Medications: NO Additional Medications: BP MEDS, CHOLESTEROL, ACID REFLUX MEDS, CYMBA COR INHALER, MULTI VIT, VIT D, METFORMIN Additional History: EXAM MEASUREMENTS: Bone mineral densitometry was performed using the [employer] System. Bone mineral density as measured about the Lumbar spine is: ----- L1-L4(G/cm2): 1.355 T Score Values are as follows: ----- L1: -0.4 ----- L2: 2.8 ----- L3: 1.3 ----- L4: 1.8 ----- L1-L4: 1.5 Bone mineral density has: DECREASED 7.2 % since study of: 02/09/2018 Bone mineral density about the R hip (g/cm2): 0.616 Bone mineral density about the L hip (g/cm2): 0.650 T Score values are as follows: -----R Neck: -3.0 -----L Neck: -2.8 -----R Total: -2.8 -----L Total: -2.3 Bone mineral density has: DECREASED 15.0 % since study of: 02/09/2018 FRAX%s: The graph provided illustrates a 53.4% chance for a major osteoporotic fx and a 41.1% chance for the hips probability for fx in 10 years time. IMPRESSION: Osteoporosis (T Score less than -2.5). There is increased fracture risk and therapy is usually indicated based on age. Re-Screen 1-2 years. NOTE: T-SCORE=SD OF THE YOUNG ADULT MEAN.
--- NOTE | 2021-08-19 14:23 | MM ---
Reason for Exam: Screening (asymptomatic). Last screening mammogram was performed 12 month(s) ago. Patient History: Menarche at age 12. First Full-Term at age 20. Hysterectomy at age 27. Postmenopausal. Estrogen for 10 years from age 48 until age 58. 2001, Benign Excisional Biopsy on the left side. Risk Values: Carmina 5 year model risk: 1.7%. NCI Lifetime model risk: 3.6%. Prior Study Comparison: 11/01/2017 Bilateral Screening Mammogram, [facility]. 11/21/2018 Bilateral Screening Mammogram, [facility]. 08/14/2020 Bilateral Screening Mammogram, [facility]. Tissue Density: There are scattered fibroglandular densities. Findings: Analyzed By CAD. Benign vascular calcifications present bilaterally. No suspicious groups of microcalcifications, spiculated or lobular masses, architectural distortion or other secondary signs of malignancy are mammographically apparent. Overall Assessment: Benign, BI-RAD 2 Management: Screening Mammogram of both breasts in 1 year. A negative mammogram report should not preclude additional follow up of suspicious palpable abnormalities. Patient should continue monthly self breast exam. A clinical breast exam by your physician is recommended on an annual basis and results should be correlated with mammographic findings. Electronically signed and approved by: Bobby Perez D.O. Radiologis
== END | disposition home or self-care (01) ==
LOC: RADMAMWWP 11:18
PROVIDERS: ATTEND Family Medicine
DX: Z12.31 Encounter for screening mammogram for malignant neoplasm of breast (principal); M85.9 Disorder of bone density and structure, unspecified
CPT/HCPCS: 77063; 77067; 77080

== ENCOUNTER 2024-03-28 10:22 | Observation (INO) | payer MEDICARE ==
--- NOTE | 2024-03-28 10:48 | ED ---
General Adult HPI - General Chief complaint: Fall Stated complaint: fall Time Seen by Provider: 03/28/24 10:24 Source: patient, EMS, RN notes reviewed Mode of arrival: EMS - History of Present Illness Initial comments: 78-year-old female presents to the emergency department for evaluation of right hip pain following a fall. Patient reports that she fell last night. She states that she believes she tripped falling onto her right hip. She denies any head injury. Denies loss of consciousness. Denies blood thinners. She denies any preceding symptoms including chest pain, shortness of breath. Patient is reporting pain in her right hip. She states that she is having difficulty with ambulation due to the pain but is able to bear weight on it. - Related Data Home Medications Medication Instructions Recorded Confirmed Omeprazole 20 mg PO DAILY 07/09/13 03/28/24 Ezetimibe [Zetia] 10 mg PO DAILY 07/10/19 03/28/24 Meloxicam [Mobic] 15 mg PO DAILY 03/28/24 03/28/24 Memantine [Namenda] 10 mg PO DAILY 03/28/24 03/28/24 lisinopriL [Zestril] 10 mg PO DAILY 03/28/24 03/28/24 Previous Rx's Medication Instructions Recorded Acetaminophen Tab [Tylenol] 650 mg PO Q6HR PRN tab 03/31/24 HYDROcodone/APAP 5-325MG [[place] 1 tab PO Q4HR PRN 3 Days #18 tab 03/31/24 5-325] Allergies Allergy/AdvReac Type Severity Reaction Status Date / Time sulfamethoxazole AdvReac Nausea & Verified 03/28/24 14:01 [From Bactrim] Vomiting Review of Systems ROS Statement: Those systems with pertinent positive or pertinent negative responses have been documented in the HPI. ROS Other: All systems not noted in ROS Statement are negative. Past Medical History Past Medical History: Asthma, Chest Pain / Angina, GERD/Reflux, Hyperlipidemia, Thyroid Disorder Additional Past Medical History / Comment(s): nodules on thyroid History of Any Multi-Drug Resistant Organisms: ESBL Date of last positivie culture/infection: 12/06/20 MDRO Source:: ESBL URINE Past Surgical History: Appendectomy, Cholecystectomy, Hysterectomy, Orthopedic Surgery, Tonsillectomy Additional Past Surgical History / Comment(s): CARPAL TUNNEL, BLADDER SUSPENSION, rt knee surgery Past Anesthesia/Blood Transfusion Reactions: No Reported Reaction Past Psychological History: No Psychological Hx Reported Smoking Status: Former smoker Past Alcohol Use History: None Reported Past Drug Use History: None Reported - Past Family History Mother Family Medical History: Cancer, Diabetes Mellitus Father Family Medical History: CVA/TIA, Diabetes Mellitus General Exam Limitations: no limitations General appearance: alert, in no apparent distress Head exam: Present: atraumatic, normocephalic, normal inspection Eye exam: Present: normal appearance, PERRL, EOMI. Absent: scleral icterus, conjunctival injection, periorbital swelling ENT exam: Present: normal exam, mucous membranes moist Neck exam: Present: normal inspection. Absent: tenderness, meningismus, lymphadenopathy Respiratory exam: Present: normal lung sounds bilaterally. Absent: respiratory distress, wheezes, rales, rhonchi, stridor Cardiovascular Exam: Present: regular rate, normal rhythm, normal heart sounds. Absent: systolic murmur, diastolic murmur, rubs, gallop, clicks GI/Abdominal exam: Present: soft. Absent: distended, tenderness, guarding, rebound, rigid Extremities exam: Present: full ROM, tenderness, normal capillary refill, other. Absent: pedal edema, joint swelling, calf tenderness Back exam: Present: normal inspection Neurological exam: Present: alert, oriented X3 Psychiatric exam: Present: normal affect, normal mood Skin exam: Present: warm, dry, intact, normal color. Absent: rash Course Vital Signs 03/28/24 03/28/24 03/28/24 10:23 14:20 18:15 Temperature 97.9 F 98 F 98 F Pulse Rate 85 85 79 Respiratory 20 16 16 Rate Blood Pressure 154/66 168/90 130/70 O2 Sat by Pulse 98 95 97 Oximetry 03/29/24 03/29/24 01:52 06:34 Temperature 97.7 F 97.7 F Pulse Rate 71 76 Respiratory 17 19 Rate Blood Pressure 146/68 129/74 O2 Sat by Pulse 98 95 Oximetry Medical Decision Making - Medical Decision Making Was pt. sent in by a medical professional or institution (, PA, STORE SALES CONSULTANT, urgent care, hospital, or senior living...) When possible be specific @ -No Did you speak to anyone other than the patient for history (EMS, parent, family, police, friend...)? What history was obtained from this source @ -No Did you review nursing and triage notes (agree or disagree)? Why? @ -I reviewed and agree with nursing and triage notes Were old charts reviewed (outside hosp., previous admission, EMS record, old EKG, old radiological studies, urgent care reports/EKG's, senior living records)? Report findings @ -No old charts were reviewed Differential Diagnosis (chest pain, altered mental status, abdominal pain women, abdominal pain men, vaginal bleeding, weakness, fever, dyspnea, syncope, headache, dizziness, GI bleed, back pain, seizure, CVA, palpatations, mental health, musculoskeletal)? @ -Differential Musculoskeletal Muscular strain, contusion, ligament sprain, fracture, arthritis, septic arthritis, bursitis, cellulitis, muscle spasm, nerve compression, DVT, arterial occlusion, herpes zoster, electrolyte abnormality, tumor.... This is not meant to be in all inclusive list EKG interpreted by me (3pts min.). @ -EKG at 1053 shows sinus rhythm rate 81, ND 174, QRS 94, QTQTc 366/403 X-rays interpreted by me (1pt min.). @ -X-ray of the pelvis shows no evidence of acute fracture, x-ray of the femur shows no evidence of acute fracture or dislocation CT interpreted by me (1pt min.). @ -CT of the pelvis reveals no evidence of acute fracture U/S interpreted by me (1pt. min.). @ -None done What testing was considered but not performed or refused? (CT, X-rays, U/S, labs)? Why? @ -None What meds were considered but not given or refused? Why? @ -None Did you discuss the management of the patient with other professionals (professionals i.e. , JAZMYN, STORE SALES CONSULTANT, lab, RT, psych nurse, social science instructor, meat loiner, teacher, training and development officer, family service caseworker)? Give summary @ -Case discussed with Loy Cr NP with [facility] who is accepting of the admission Was smoking cessation discussed for >3mins.? @ -No Was critical care preformed (if so, how long)? @ -No Were there social determinants of health that impacted care today? How? (Home lessness, low income, unemployed, alcoholism, drug addiction, transportation, low edu. Level, literacy, decrease access to med. care, penitentiary, rehab)? @ -No Was there de-escalation of care discussed even if they declined (Discuss DNR or withdrawal of care, Hospice)? DNR status @ -No What co-morbidities impacted this encounter? (DM, HTN, Smoking, COPD, CAD, Cancer, CVA, ARF, Chemo, Hep., AIDS, mental health diagnosis, sleep apnea, morbid obesity)? @ -None Was patient admitted / discharged? Hospital course, mention meds given and route, prescriptions, significant lab abnormalities, going to OR and other pertinent info. @ -Admitted patient presented emergency department for evaluation of fall with hip pain. X-rays obtained revealing no acute fracture. CT was also obtained as patient cannot ambulate which shows no acute fracture. Patient will be admitted with orthopedic consultation as she is unable to walk. Case was discussed with Loy Cr NP with [facility] who is accepting of the admission. Case discussed with Dr. Hawk Undiagnosed new problem with uncertain prognosis? @ -No Drug Therapy requiring intensive monitoring for toxicity (Heparin, Nitro, Insulin, Cardizem)? @ -No Were any procedures done? @ -No Diagnosis/symptom? @ -Hip pain, unable to ambulate Acute, or Chronic, or Acute on Chronic? @ -acute Uncomplicated (without systemic symptoms) or Complicated (systemic symptoms)? @ -uncomplicated Side effects of treatment? @ -No Exacerbation, Progression, or Severe Exacerbation? @ -No Poses a threat to life or bodily function? How? (Chest pain, USA, MT, pneumonia, PE, COPD, DKA, ARF, appy, cholecystitis, CVA, Diverticulitis, Homicidal, Suicidal, threat to staff... and all critical care pts) @ -No - Lab Data Result diagrams: 03/30/24 06:56 03/30/24 06:56 Lab Results 03/28/24 03/28/24 03/28/24 Range/Units 11:28 11:28 13:00 WBC 11.0 H (3.8-10.6) k/uL RBC 4.42 (3.80-5.40) m/uL Hgb 12.6 (11.4-16.0) gm/dL Hct 38.5 (34.0-46.0) % MCV 87.0 (80.0-100.0) fL MCH 28.6 (25.0-35.0) pg MCHC 32.9 (31.0-37.0) g/dL RDW 12.9 (11.5-15.5) % Plt Count 271 (150-450) k/uL MPV 7.1 Neutrophils % 78 % Lymphocytes % 12 % Monocytes % 6 % Eosinophils % 3 % Basophils % 1 % Neutrophils # 8.6 H (1.3-7.7) k/uL Lymphocytes # 1.3 (1.0-4.8) k/uL Monocytes # 0.6 (0-1.0) k/uL Eosinophils # 0.3 (0-0.7) k/uL Basophils # 0.1 (0-0.2) k/uL Sodium 133 L (137-145) mmol/L Potassium 4.3 (3.5-5.1) mmol/L Chloride 99 (98-107) mmol/L Carbon Dioxide 23 (22-30) mmol/L Anion Gap 11 mmol/L BUN 23 H (7-17) mg/dL Creatinine 0.91 (0.52-1.04) mg/dL Est GFR (CKD-EPI)AfAm 70 (>60 ml/min/1.73 sqM) Est GFR (CKD-EPI)NonAf 61 (>60 ml/min/1.73 sqM) Glucose 136 H (74-99) mg/dL Calcium 9.4 (8.4-10.2) mg/dL Total Bilirubin 0.7 (0.2-1.3) mg/dL AST 21 (14-36) U/L ALT 18 (4-34) U/L Alkaline Phosphatase 76 (38-126) U/L Total Protein 6.8 (6.3-8.2) g/dL Albumin 4.3 (3.5-5.0) g/dL Urine Color Light Yellow Urine Appearance Clear (Clear) Urine pH 5.5 (5.0-8.0) Ur Specific [place] 1.018 (1.001-1.035) Urine Protein Negative (Negative) Urine Glucose (UA) Negative (Negative) Urine Ketones Negative (Negative) Urine Blood Negative (Negative) Urine Nitrite Negative (Negative) Urine Bilirubin Negative (Negative) Urine Urobilinogen <2.0 (<2.0) mg/dL Ur Leukocyte Esterase Small H (Negative) Urine RBC 1 (0-5) /hpf Urine WBC 8 H (0-5) /hpf Ur Squamous Epith Cells 1 (0-4) /hpf Urine Bacteria Rare H (None) /hpf Urine Mucus Occasional H (None) /hpf Disposition Clinical Impression: Fall, Unable to ambulate Disposition: ADMITTED IP TO THIS HOSP Condition: Stable Is patient prescribed a controlled substance at d/c from ED?: No
[2024-03-28 11:34] LABS: Basophils # (A) 0.1 k/uL (0-0.2); Basophils % (A) 1 %; Eosinophils # (A) 0.3 k/uL (0-0.7); Eosinophils % (A) 3 %; HCT 38.5 % (34.0-46.0); HGB 12.6 gm/dL (11.4-16.0); Lymphocytes # (A) 1.3 k/uL (1.0-4.8); Lymphocytes % (A) 12 %; MCH 28.6 pg (25.0-35.0); MCHC 32.9 g/dL (31.0-37.0); Mean Platelet Volume 7.1; Monocytes # (A) 0.6 k/uL (0-1.0); Monocytes % (A) 6 %; Neutrophils # (A) 8.6 k/uL (1.3-7.7); Neutrophils % (A) 78 %; Platelet Count 271 k/uL (150-450); RBC 4.42 m/uL (3.80-5.40); RDW 12.9 % (11.5-15.5)
--- NOTE | 2024-03-28 11:52 | XR ---
EXAMINATION TYPE: XR pelvis AP view, XR femur RT DATE OF EXAM: 03/28/2024 11:38 AM COMPARISON: 10/24/2019 CLINICAL INDICATION: Female, 78 years old with history of fall; pain TECHNIQUE: XR pelvis AP view, XR femur RT, examined in a single projection. Frontal lateral views of the right femur. FINDINGS: Rectosigmoid junction suture are noted. Subtle cortical defect near the medial aspect of th e right acetabulum concerning for fracture. There is no soft tissue abnormality. No abnormal calcifi cations are present. Multilevel degenerative changes of the lower spine. The hips appear intact. Osteophyte formation of the superior acetabulum bilaterally with mild joint space narrowing. Total right knee arthroplasty changes appear intact. I discussed the arterial vasculature. Small join t effusion. IMPRESSION: 1. Cortical step-off of the right acetabulum medially concerning for fracture consider CT imaging fo r confirmation. 2. Mild degeneration changes of the hip. 3. Right femur appears intact. 4. Right knee total knee arthroplasty changes appear intact. [facility], , 03/28/2024 11:50 AM
[2024-03-28 11:55] LABS: ALT 18 U/L (4-34); AST 21 U/L (14-36); African American GFR (CKD) 70 (>60 ml/min/1.73 sqM); Albumin 4.3 g/dL (3.5-5.0); Alkaline Phosphatase 76 U/L (38-126); Anion Gap 11 mmol/L; Blood Urea Nitrogen 23 mg/dL (7-17); Calcium 9.4 mg/dL (8.4-10.2); Carbon Dioxide 23 mmol/L (22-30); Chloride 99 mmol/L (98-107); Glucose 136 mg/dL (74-99); Non-African American GFR(CKD) 61 (>60 ml/min/1.73 sqM); Potassium 4.3 mmol/L (3.5-5.1); Sodium 133 mmol/L (137-145); Total Bilirubin 0.7 mg/dL (0.2-1.3); Total Protein 6.8 g/dL (6.3-8.2)
--- NOTE | 2024-03-28 13:29 | CT ---
EXAMINATION TYPE: CT pelvis wo con DATE OF EXAM: 03/28/2024 COMPARISON: None CLINICAL INDICATION: Female, 78 years old with history of rt hip/pelvic pain, fall; PHH, rt hip/pelvi c pain, fall CT DLP: 252.4 mGycm Automated exposure control for dose reduction was used. FINDINGS: The pelvis is intact and there is no fracture or focal intraosseous abnormality. There is no diastasi s of the SI joints or pubic symphysis. Hips are normal and symmetric bilaterally with no fracture or dislocation. There is advanced arthropathy of the facets in the lower lumbar spine and advanced degenerative disc disease in the lower lumbar spine. The soft tissues of the pelvis are intact. There is no pelvic adenopathy or mass in the visualized alva wel loops are normal.. IMPRESSION: No evidence of acute pelvic or hip trauma. [facility], Workstation: [id number] 03/28/2024 1:27 PM
[2024-03-28 13:37] LABS: Appearance,Urine Clear (Clear); Bacteria,Urine Rare /hpf; Bilirubin,Urine Negative (Negative); Blood,Urine Negative (Negative); Color,Urine Light Yellow; Glucose,Urine (UA) Negative (Negative); Ketones,Urine Negative (Negative); Leukocyte Esterase,Urine Small (Negative); Mucus,Urine Occasional /hpf; Nitrite,Urine Negative (Negative); PH, Urine 5.5 (5.0-8.0); Protein,Urine Negative (Negative); RBC,Urine 1 /hpf (0-5); Specific Gravity,Urine 1.018 (1.001-1.035); Squamous Epithelial Cell,Urine 1 /hpf (0-4); Urobilinogen,Urine <2.0 mg/dL (<2.0); WBC,Urine 8 /hpf (0-5)
[2024-03-28] MEDS: MORPHINE SULFATE 2 MG/ML SYRINGE IVP STA (14:25)
[2024-03-28] MEDS ORDERED: MORPHINE SULFATE 2 MG/ML SYRINGE IV PRN (15:01)
[2024-03-28] MEDS ORDERED: NALOXONE 0.4 MG/ML 1 ML VIAL IV PRN (15:01)
--- NOTE | 2024-03-28 16:47 | P.HPIM ---
History of Present Illness H&P Date: 03/28/24 History of Presenting Illness: Patient is a very pleasant 78-year-old female with a past medical history of hypertension, hyperlipidemia, GERD, mild dementia, and nodules on her thyroid. She presented to the emergency department status post right hip pain status post trip and fall at home. Patient lives at home alone and ambulates independently at baseline, she denies hitting her head or experiencing any dizziness/lightheadedness prior to fall stating she simply tripped falling directly onto her right hip and has since been unable to bear any weight on her right lower extremity and has had persistent pain in right hip. Patient denies any other complaints including headache, lightheadedness, dizziness, chest pain, palpitations, shortness of breath, cough or congestion, nausea, vomiting, difficulties with or changes in urinary function, or experiencing any numbness/ tingling/swelling in her extremities. Upon arrival to our facility, patient underwent evaluation in the emergency department. Vital signs upon arrival show blood pressure 154/66, heart rate 85, respiratory rate 20, temp 97.9 F, SpO2 of 98% on room air. EKG completed showing normal sinus rhythm at 81 bpm with no significant T wave or ST abnormality showing no signs of acute ischemia upon personal review and interpretation. X-ray right hip and femur showing cortical step-off at the right acetabulum medially concerning for fracture, mild degenerative changes of the hip, intact right femur and right knee total knee arthroplasty changes appear to be intact. CT pelvis without contrast was then obtained showing no evidence of acute pelvic or hip trauma. Labs were completed and reviewed. CBC showing leukocytosis with WBC count of 11.0 otherwise normal findings. BMP showing hyponatremia with sodium of 133 and slightly elevated BUN of 23 otherwise normal findings. Blood glucose 136. Liver profile unremarkable. Urinalysis negative for infection showing small amount of leukocyte esterase and only 8 WBCs. Attempts were made at ambulating patient in the emergency department unsuccessful as patient remained unable to place any weight on right lower extremity. Patient admitted under our services with consultation to orthopedic surgery team. Review of systems: Pertinent positives and negatives as discussed in HPI, a complete review of systems was performed and all other systems are negative. Physical exam: Vital signs reviewed and stable. General: Nontoxic, no distress and appears stated age. Derm: Skin warm and dry, normal coloration for ethnicity. Head: Atraumatic, normocephalic and symmetric. Eyes: EOM's intact, no lid lag, and anicteric sclera Mouth: no lip lesions, mucus membranes moist Cardiovascular: regular rate and rhythm with normal S1S2, no murmur, positive posterior tibial pulses bilaterally, and cap refill < 2 seconds. Lungs: Respirations even, regular, and unlabored on room air. Lungs CTA bilaterally, no rhonchi, no rales, no wheezing, and no accessory muscle usage. Abdominal: soft, nontender to palpation, no guarding, no appreciable organ omegaly Ext: No gross muscle atrophy, no edema, no contractures. Sensation intact. Patient with moderate pain to right hip upon movement. She was unable to raise right lower extremity independently, full range of motion to left lower extremity and bilateral upper extremities. Neuro: Speech clear, face symmetrical and CN II-XII grossly intact with no noted focal neuro deficits Psych: Alert and oriented to person, place, time, and situation. Appropriate and pleasant affect. Assessment and Plan of Care: Mechanical fall resulting in right hip pain and inability to bear weight Rule out fracture of acetabulum -X-ray right hip and femur showing cortical step-off at the right acetabulum medially concerning for fracture, mild degenerative changes of the hip, intact right femur and right knee total knee arthroplasty changes appear to be intact. -CT pelvis without contrast was then obtained showing no evidence of acute pelvic or hip trauma. -Orthopedic surgery team consulted, appreciate recommendations. -Symptomatic care and pain management with Tylenol 650 mg every 6 hours as needed for mild pain/fever, Toradol 15 mg IVP every 6 hours as needed for moderate pain, and morphine 2 mg IVP every 4 hours as needed for severe pain. -Fall precautions in place. -Consult placed to Physical Therapy and Occupational Therapy for evaluation. Mild dementia -Patient currently alert and oriented to person, place, time, and situation. Maintain safe and supportive care and assistance/redirection if needed. Continue Namenda 10 mg daily. Hypertension -Monitor vital signs and continue daily medication regimen with-Lisinopril 10 mg daily. Hyperlipidemia -Continue daily medication regimen with Zetia 10 mg daily. Data and imaging reviewed: As stated above in HPI CODE STATUS: Full code DVT prophylaxis: Lovenox Anticipated discharge date: Pending clinical course, likely 24 to [address]: Pending clinical course Home versus SNF Patient was seen independently by Nurse Practitioner. This document was prepared using Box dictation software. Please allow for errors in java security architect while rare they do occur. Loy Cr NP rendered care for this patient independently, reviewed the findings and plan as documented in the note above and agree with plan. I did not physically speak with or examine the patient on this date. Past Medical History Past Medical History: Asthma, Chest Pain / Angina, GERD/Reflux, Hyperlipidemia, Thyroid Disorder Additional Past Medical History / Comment(s): nodules on thyroid History of Any Multi-Drug Resistant Organisms: ESBL Date of last positivie culture/infection: 12/06/20 MDRO Source:: ESBL URINE Past Surgical History: Appendectomy, Cholecystectomy, Hysterectomy, Orthopedic Surgery, Tonsillectomy Additional Past Surgical History / Comment(s): CARPAL TUNNEL, BLADDER SUSPENSION, rt knee surgery Past Anesthesia/Blood Transfusion Reactions: No Reported Reaction Past Psychological History: No Psychological Hx Reported Smoking Status: Former smoker Past Alcohol Use History: None Reported Past Drug Use History: None Reported - Past Family History Mother Family Medical History: Cancer, Diabetes Mellitus Father Family Medical History: CVA/TIA, Diabetes Mellitus Medications and Allergies Home Medications Medication Instructions Recorded Confirmed Type Omeprazole 20 mg PO DAILY 07/09/13 03/28/24 History Ezetimibe [Zetia] 10 mg PO DAILY 07/10/19 03/28/24 History Meloxicam [Mobic] 15 mg PO DAILY 03/28/24 03/28/24 History Memantine [Namenda] 10 mg PO DAILY 03/28/24 03/28/24 History lisinopriL [Zestril] 10 mg PO DAILY 03/28/24 03/28/24 History Allergies Allergy/AdvReac Type Severity Reaction Status Date / Time sulfamethoxazole AdvReac Nausea & Verified 03/28/24 14:01 [From Bactrim] Vomiting Physical Exam Vitals: Vital Signs Temp Pulse Resp BP Pulse Ox 03/28/24 14:20 98 F 85 16 168/90 95 03/28/24 10:23 97.9 F 85 20 154/66 98 Intake and Output 03/28/24 03/28/24 03/28/24 06:59 14:59 22:59 Other: Weight 48.988 kg Results CBC & Chem 7: 03/28/24 11:28 02/04/25 11:28 Labs: Abnormal Lab Results - Last 24 Hours (Table) 03/28/24 03/28/24 03/28/24 Range/Units 11:28 11:28 13:00 WBC 11.0 H (3.8-10.6) k/uL Neutrophils # 8.6 H (1.3-7.7) k/uL Sodium 133 L (137-145) mmol/L BUN 23 H (7-17) mg/dL Glucose 136 H (74-99) mg/dL Ur Leukocyte Esterase Small H (Negative) Urine WBC 8 H (0-5) /hpf Urine Bacteria Rare H (None) /hpf Urine Mucus Occasional H (None) /hpf
[2024-03-28] MEDS: KETOROLAC 15 MG/ML 1 ML VIAL IVP PRN (22:26)
[2024-03-29 08:31] LABS: ALT 15 U/L (8-44); AST 17 U/L (13-35); Albumin 3.9 g/dL (3.8-4.9); Albumin/Globulin Ratio 2.17 Ratio (1.60-3.17); Alkaline Phosphatase 66 U/L (41-126); Blood Urea Nitrogen 24.2 mg/dL (9.0-27.0); Calcium 8.5 mg/dL (8.7-10.3); Carbon Dioxide 22.8 mmol/L (21.6-31.8); Chloride 98 mmol/L (96-109); Globulin 1.8 g/dL (1.6-3.3); Glucose 108 mg/dL (70-110); Magnesium 1.8 mg/dL (1.5-2.4); Potassium 4.4 mmol/L (3.5-5.5); Sodium 131 mmol/L (135-145); Total Bilirubin 0.4 mg/dL (0.3-1.2); Total Protein 5.7 g/dL (6.2-8.2)
[2024-03-29 08:42] LABS: HCT 33.4 % (37.2-46.3); HGB 11.1 g/dL (12.0-15.0); MCH 29.1 pg (27.0-32.0); MCHC 33.2 g/dL (32.0-37.0); MCV 87.7 FL (80.0-97.0); NRBC Per 100 WBC 0 X 10*3/uL (0.00-0.01); Platelet Count 239 X 10*3/uL (140-440); RBC 3.81 X 10*6/uL (4.10-5.20); RDW 13.2 % (11.5-14.5); WBC 9.12 X 10*3/uL (4.50-10.00)
[2024-03-29] MEDS: lisinopriL 10 MG TAB PO SCH (09:39)
[2024-03-29] MEDS: EZETIMIBE 10 MG TAB PO SCH (09:39)
[2024-03-29] MEDS: ENOXAPARIN 40 MG/0.4 ML SYRINGE SQ SCH (09:39)
[2024-03-29] MEDS: PANTOPRAZOLE 40 MG TABLET PO SCH (09:39)
[2024-03-29] MEDS: MEMANTINE 10 MG TAB PO SCH (09:39)
[2024-03-29] MEDS: ACETAMINOPHEN TAB 325 MG TAB PO PRN (09:42)
--- NOTE | 2024-03-29 13:28 | P.CNOR ---
History of Present Illness - HPI Consult date: 03/29/24 History of present illness: This is a 78-year-old female is admitted for hip pain. Orthopedics is consulted for further evaluation. Patient states that she had a fall at home recently and now has pain in the right hip. Patient is a poor historian and cannot recall when she fell or how. Patient does report pain in the right hip with movement. Per nursing, the patient has been unable to bear weight on the right leg and has needed assistance for transfers. Patient's past medical history is significant for hypertension, hyperlipidemia, GERD, dementia and thyroid nodules. Patient denies any fever/chills, chest pain, shortness breath, abdominal pain, numbness, weakness or tingling. Review of Systems See HPI. Past Medical History Past Medical History: Asthma, Chest Pain / Angina, GERD/Reflux, Hyperlipidemia, Thyroid Disorder Additional Past Medical History / Comment(s): nodules on thyroid History of Any Multi-Drug Resistant Organisms: ESBL Year Discovered:: 12/06/20 MDRO Source:: ESBL URINE Past Surgical History: Appendectomy, Cholecystectomy, Hysterectomy, Orthopedic Surgery, Tonsillectomy Additional Past Surgical History / Comment(s): CARPAL TUNNEL, BLADDER SUSPENSION, rt knee surgery Past Anesthesia/Blood Transfusion Reactions: No Reported Reaction Past Psychological History: No Psychological Hx Reported Smoking Status: Former smoker Past Alcohol Use History: None Reported Past Drug Use History: None Reported - Past Family History Mother Family Medical History: Cancer, Diabetes Mellitus Father Family Medical History: CVA/TIA, Diabetes Mellitus Medications and Allergies Home Medications Medication Instructions Recorded Confirmed Type Omeprazole 20 mg PO DAILY 07/09/13 03/28/24 History Ezetimibe [Zetia] 10 mg PO DAILY 07/10/19 03/28/24 History Meloxicam [Mobic] 15 mg PO DAILY 03/28/24 03/28/24 History Memantine [Namenda] 10 mg PO DAILY 03/28/24 03/28/24 History lisinopriL [Zestril] 10 mg PO DAILY 03/28/24 03/28/24 History Allergies Allergy/AdvReac Type Severity Reaction Status Date / Time sulfamethoxazole AdvReac Nausea & Verified 03/28/24 14:01 [From Bactrim] Vomiting Physical Examination On exam patient is resting comfortably in bed in no acute distress. Patient is alert and mildly confused. Right lower extremity: Skin is intact. There is no significant swelling. Patient is able to actively flex and extend the right hip and knee. Patient has comfort in the groin with motion of the right hip. Patient has pain in the right hip with logroll of the right lower extremity. Calf is soft and nontender to palpation. Patient has full range of motion of the right foot and ankle. Sensation intact. Right lower extremity is warm and well-perfused. Results An x-ray report of the pelvis and right femur dated 03/28/2024 shows: 1. Cortical step-off of the right acetabulum medially concerning for fracture consider CT imaging for confirmation. 2. Mild degeneration changes of the hip. 3. Right femur appears intact. 4. Right total knee arthroplasty changes appear intact. CT of the pelvis is reviewed revealing a fracture of the acetabulum. - Labs Labs: Abnormal Lab Results - Last 24 Hours (Table) 03/28/24 03/28/24 03/29/24 Range/Units 11:28 13:00 03:11 RBC 3.81 L (4.10-5.20) X 10*6/uL Hgb 11.1 L (12.0-15.0) g/dL Hct 33.4 L (37.2-46.3) % Sodium 133 L (137-145) mmol/L BUN 23 H (7-17) mg/dL Est GFR (CKD-EPI) (>=60) BUN/Creatinine Ratio (12.00-20.00) Ratio Glucose 136 H (74-99) mg/dL Calcium (8.7-10.3) mg/dL Total Protein (6.2-8.2) g/dL Ur Leukocyte Esterase Small H (Negative) Urine WBC 8 H (0-5) /hpf Urine Bacteria Rare H (None) /hpf Urine Mucus Occasional H (None) /hpf 03/29/24 Range/Units 03:11 RBC (4.10-5.20) X 10*6/uL Hgb (12.0-15.0) g/dL Hct (37.2-46.3) % Sodium 131 L (137-145) mmol/L BUN (7-17) mg/dL Est GFR (CKD-EPI) 52 L (>=60) BUN/Creatinine Ratio 22.00 H (12.00-20.00) Ratio Glucose (74-99) mg/dL Calcium 8.5 L (8.7-10.3) mg/dL Total Protein 5.7 L (6.2-8.2) g/dL Ur Leukocyte Esterase (Negative) Urine WBC (0-5) /hpf Urine Bacteria (None) /hpf Urine Mucus (None) /hpf H & H 03/28/24 03/29/24 Range/Units 11:28 03:11 Hgb 12.6 11.1 L (11.4-16.0) gm/dL Hct 38.5 33.4 L (34.0-46.0) % Result Diagrams: 03/29/24 03:11 03/29/24 03:11 Assessment and Plan (1) Fall Current Visit: Yes Status: Acute Code(s): W19.XXXA - UNSPECIFIED FALL, IN ITIAL ENCOUNTER SNOMED Code(s): 3558360 (2) Unable to ambulate Current Visit: Yes Status: Acute Code(s): R26.2 - DIFFICULTY IN WALKING, NOT ELSEWHERE CLASSIFIED SNOMED Code(s): 228487544 (3) Acetabulum fracture, right Current Visit: Yes Status: Acute Code(s): S32.401A - UNSP FRACTURE OF RIGHT ACETABULUM, INIT FOR CLOS FX SNOMED Code(s): 16515196 (4) Nondisplaced fracture of acetabulum Current Visit: Yes Status: Acute Code(s): S32.409A - UNSP FRACTURE OF UNSP ACETABULUM, INIT FOR CLOS FX SNOMED Code(s): 61890913 Plan: 1. Imaging is reviewed. Patient is to be toe-touch weightbearing to the right lower extremity. 2. Continue pain control. Recommend consult to physical therapy. Patient will likely need discharge to [facility]. 3. There is no surgical intervention planned. We will continue to follow.
--- NOTE | 2024-03-29 15:54 | P.PN ---
Subjective Progress Note Date: 03/29/24 Hospital Course: Patient is a very pleasant 78-year-old female with a past medical history of hypertension, hyperlipidemia, GERD, mild dementia, and nodules on her thyroid. She presented to the emergency department status post right hip pain status post trip and fall at home. Patient lives at home alone and ambulates independently at baseline, she denies hitting her head or experiencing any dizziness/lightheadedness prior to fall stating she simply tripped falling directly onto her right hip and has since been unable to bear any weight on her right lower extremity and has had persistent pain in right hip. Upon arrival to our facility, patient underwent evaluation in the emergency department. Vital signs upon arrival show blood pressure 154/66, heart rate 85, respiratory rate 20, temp 97.9 F, SpO2 of 98% on room air. EKG completed showing normal sinus rhythm at 81 bpm with no significant T wave or ST abnormality showing no signs of acute ischemia upon personal review and interpretation. X-ray right hip and femur showing cortical step-off at the right acetabulum medially concerning for fracture, mild degenerative changes of the hip, intact right femur and right knee total knee arthroplasty changes appear to be intact. CT pelvis without co ntrast was then obtained showing no evidence of acute pelvic or hip trauma. Labs were completed and reviewed. CBC showing leukocytosis with WBC count of 11.0 otherwise normal findings. BMP showing hyponatremia with sodium of 133 and slightly elevated BUN of 23 otherwise normal findings. Blood glucose 136. Liver profile unremarkable. Urinalysis negative for infection showing small amount of leukocyte esterase and only 8 WBCs. Attempts were made at ambulating patient in the emergency department unsuccessful as patient remained unable to place any weight on right lower extremity. Patient admitted under our services with consultation to orthopedic surgery team. Physical exam: Patient seen and fully evaluated at bedside this morning. She again reports pain to right hip remains unchanged. She states pain is relieved at rest and increases significantly with any attempts at movement. Patient denies having any other complaints at this time. Vital signs reviewed and stable. General: Nontoxic, no distress and appears stated age. Derm: Skin warm and dry, normal coloration for ethnicity. Head: Atraumatic, normocephalic and symmetric. Eyes: EOM's intact, no lid lag, and anicteric sclera Mouth: no lip lesions, mucus membranes moist Cardiovascular: regular rate and rhythm with normal S1S2, no murmur, positive posterior tibial pulses bilaterally, and cap refill < 2 seconds. Lungs: Respirations even, regular, and unlabored on room air. Lungs CTA bilaterally, no rhonchi, no rales, no wheezing, and no accessory muscle usage. Abdominal: soft, nontender to palpation, no guarding, no appreciable organomegaly Ext: No gross muscle atrophy, no edema, no contractures. Sensation intact. Patient with moderate pain to right hip upon movement. She was unable to raise right lower extremity independently, full range of motion to left lower extremity and bilateral upper extremities. Neuro: Speech clear, face symmetrical and CN II-XII grossly intact with no noted focal neuro deficits Psych: Alert and oriented to person, place, time, and situation. Appropriate and pleasant affect. Assessment and Plan of Care: Mechanical fall resulting in right hip pain and inability to bear weight Acute fracture of Acetabulum -X-ray right hip and femur showing cortical step-off at the right acetabulum medially concerning for fracture, mild degenerative changes of the hip, intact right femur and right knee total knee arthroplasty changes appear to be intact. -CT pelvis without contrast was then obtained reporting no evidence of acute pelvic or hip trauma, upon personal review concerns for acetabular fracture and called to discuss concerns with orthopedic surgery team who also reviewed CT confirming acute fracture of right acetabulum. -Orthopedic surgery team consulted, discussed in detail with orthopedic PA. -Patient placed on strict bedrest pending further evaluation from orthopedic surgery team. -Symptomatic care and pain management with Tylenol 650 mg every 6 hours as needed for mild pain/fever, Toradol 15 mg IVP every 6 hours as needed for moderate pain, and morphine 2 mg IVP every 4 hours as needed for severe pain. -Fall precautions in place. -Consult placed to Physical Therapy and Occupational Therapy for evaluation. Mild dementia -Patient currently alert and oriented to person, place, time, and situation. Maintain safe and supportive care and assistance/redirection if needed. Continue Namenda 10 mg daily. Hypertension -Monitor vital signs and continue daily medication regimen with-Lisinopril 10 mg daily. Hyperlipidemia -Continue daily medication regimen with Zetia 10 mg daily. Data and imaging reviewed: Morning labs reviewed. CBC showing mild normocytic anemia with hemoglobin of 11.1. BMP showing hyponatremia with sodium of 131. Blood glucose 108. Magnesium 1.8. Liver profile unremarkable. Vital signs reviewed. Blood pressure 128/66, heart rate 74, respiratory rate 18, temp 98.1 F, and SpO2 100% on room air. CODE STATUS: Full code DVT prophylaxis: Lovenox Anticipated discharge date: Pending clinical course Anticipated discharge place: Pending clinical course Home with homecare versus SNF Patient was seen independently by Nurse Practitioner. This document was prepared using [employer]stream dictation software. Please allow for errors in director data management while rare they do occur. Loy Cr TRAINING PROGRAM ASSISTANT rendered care for this patient independently, reviewed the fi ndings and plan as documented in the note above and agree with plan. I did not physically speak with or examine the patient on this date. Objective - Vital Signs Vital signs: Vital Signs Temp 97.7 F 03/29/24 06:34 Pulse 76 03/29/24 06:34 Resp 19 03/29/24 06:34 BP 129/74 03/29/24 06:34 Pulse Ox 95 03/29/24 06:34 FiO2 Intake & Output 03/28/24 03/29/24 03/29/24 18:59 06:59 18:59 Weight 48.988 kg - Labs CBC & Chem 7: 03/29/24 03:11 03/29/24 03:11 Labs: Abnormal Lab Results - Last 24 Hours (Table) 03/28/24 03/28/24 03/28/24 Range/Units 11:28 11:28 13:00 WBC 11.0 H (3.8-10.6) k/uL Neutrophils # 8.6 H (1.3-7.7) k/uL Sodium 133 L (137-145) mmol/L BUN 23 H (7-17) mg/dL Glucose 136 H (74-99) mg/dL Ur Leukocyte Esterase Small H (Negative) Urine WBC 8 H (0-5) /hpf Urine Bacteria Rare H (None) /hpf Urine Mucus Occasional H (None) /hpf
[2024-03-30 10:42] LABS: ALT 15 U/L (8-44); AST 18 U/L (13-35); Albumin 3.9 g/dL (3.8-4.9); Albumin/Globulin Ratio 2.05 Ratio (1.60-3.17); Alkaline Phosphatase 70 U/L (41-126); BUN/Creat Ratio 18.44 Ratio (12.00-20.00); Blood Urea Nitrogen 16.6 mg/dL (9.0-27.0); Calcium 9.2 mg/dL (8.7-10.3); Carbon Dioxide 24.4 mmol/L (21.6-31.8); Chloride 98 mmol/L (96-109); Globulin 1.9 g/dL (1.6-3.3); Glucose 114 mg/dL (70-110); Magnesium 1.9 mg/dL (1.5-2.4); Potassium 4.7 mmol/L (3.5-5.5); Sodium 132 mmol/L (135-145); Total Bilirubin 0.4 mg/dL (0.3-1.2); Total Protein 5.8 g/dL (6.2-8.2)
--- NOTE | 2024-03-30 11:35 | P.PN ---
Subjective Progress Note Date: 03/30/24 This is a 78-year-old female who was admitted for ECF placement due to a fracture of the right acetabulum. Patient is seen and evaluated at bedside today. Objective - Vital Signs Vital signs: Vital Signs Temp 98.6 F 03/30/24 06:55 Pulse 70 03/30/24 06:55 Resp 16 03/30/24 06:55 BP 141/66 03/30/24 06:55 Pulse Ox 96 03/30/24 06:55 FiO2 Intake & Output 03/29/24 03/30/24 03/30/24 18:59 06:59 18:59 Intake Total 480 Output Total 400 1000 Balance -400 -1000 480 Weight 48.988 kg Intake: Oral 480 Output: Urine 400 1000 Uretheral (Culp) 100 Other: Voiding Method Bedside Commode Indwelling Catheter # Voids 1 - Exam On exam patient is resting comfortably in bed in no acute distress. Patient is alert and mildly confused. Right lower extremity: Skin is intact. There is no significant swelling. Patient is able to actively flex and extend the right hip and knee. Patient has comfort in the groin with motion of the right hip. Patient has pain in the right hip with logroll of the right lower extremity. Calf is soft and nontender to palpation. Patient has full range of motion of the right foot and ankle. Sensation intact. Right lower extremity is warm and well-perfused. - Labs CBC & Chem 7: 03/29/24 03:11 03/30/24 06:56 Labs: Abnormal Lab Results - Last 24 Hours (Table) 03/30/24 Range/Units 06:56 Sodium 132 L (135-145) mmol/L Glucose 114 H (70-110) mg/dL Total Protein 5.8 L (6.2-8.2) g/dL Assessment and Plan (1) Fall Current Visit: Yes Status: Acute Code(s): W19.XXXA - UNSPECIFIED FALL, INITIAL ENCOUNTER SNOMED Code(s): 7634950 (2) Unable to ambulate Current Visit: Yes Status: Acute Code(s): R26.2 - DIFFICULTY IN WALKING, NOT ELSEWHERE CLASSIFIED SNOMED Code(s): 466050476 (3) Acetabulum fracture, right Current Visit: Yes Status: Acute Code(s): S32.401A - UNSP FRACTURE OF RIGHT ACETABULUM, INIT FOR CLOS FX SNOMED Code(s): 88720100 (4) Nondisplaced fracture of acetabulum Current Visit: Yes Status: Acute Code(s): S32.409A - UNSP FRACTURE OF UNSP ACETABULUM, INIT FOR CLOS FX SNOMED Code(s): 94468569 Plan: 1. Patient is to be toe-touch weightbearing to the right lower extremity. 2. Continue pain control. Recommend consult to physical therapy. Patient will likely need discharge to [facility]. 3. There is no surgical intervention planned. Patient may follow up as an outpatient.
--- NOTE | 2024-03-30 13:05 | P.PN ---
Subjective Progress Note Date: 03/30/24 Hospital Course: Patient is a very pleasant 78-year-old female with a past medical history of hypertension, hyperlipidemia, GERD, mild dementia, and nodules on her thyroid. She presented to the emergency department status post right hip pain status post trip and fall at home. Patient lives at home alone and ambulates independently at baseline, she denies hitting her head or experiencing any dizziness/lightheadedness prior to fall stating she simply tripped falling directly onto her right hip and has since been unable to bear any weight on her right lower extremity and has had persistent pain in right hip. Upon arrival to our facility, patient underwent evaluation in the emergency department. Vital signs upon arrival show blood pressure 154/66, heart rate 85, respiratory rate 20, temp 97.9 F, SpO2 of 98% on room air. EKG completed showing normal sinus rhythm at 81 bpm with no significant T wave or ST abnormality showing no signs of acute ischemia upon personal review and interpretation. X-ray right hip and femur showing cortical step-off at the right acetabulum medially concerning for fracture, mild degenerative changes of the hip, intact right femur and right knee total knee arthroplasty changes appear to be intact. CT pelvis without co ntrast was then obtained showing no evidence of acute pelvic or hip trauma. Labs were completed and reviewed. CBC showing leukocytosis with WBC count of 11.0 otherwise normal findings. BMP showing hyponatremia with sodium of 133 and slightly elevated BUN of 23 otherwise normal findings. Blood glucose 136. Liver profile unremarkable. Urinalysis negative for infection showing small amount of leukocyte esterase and only 8 WBCs. Attempts were made at ambulating patient in the emergency department unsuccessful as patient remained unable to place any weight on right lower extremity. Patient admitted under our services with consultation to orthopedic surgery team. Physical exam: Patient seen and fully evaluated at bedside this morning. She continues to report moderate pain to right hip. She was evaluated by orthopedic surgery team stating patient may be toe-touch weightbearing to the right lower extremity and follow-up outpatient. Vital signs reviewed and stable. General: Nontoxic, no distress and appears stated age. Derm: Skin warm and dry, normal coloration for ethnicity. Head: Atraumatic, normocephalic and symmetric. Eyes: EOM's intact, no lid lag, and anicteric sclera Mouth: no lip lesions, mucus membranes moist Cardiovascular: regular rate and rhythm with normal S1S2, no murmur, positive posterior tibial pulses bilaterally, and cap refill < 2 seconds. Lungs: Respirations even, regular, and unlabored on room air. Lungs CTA bilaterally, no rhonchi, no rales, no wheezing, and no accessory muscle usage. Abdominal: soft, nontender to palpation, no guarding, no appreciable organomegaly Ext: No gross muscle atrophy, no edema, no contractures. Sensation intact. Patient with moderate pain to right hip upon movement. She was unable to raise right lower extremity independently, full range of motion to left lower ex tremity and bilateral upper extremities. Neuro: Speech clear, face symmetrical and CN II-XII grossly intact with no noted focal neuro deficits Psych: Alert and oriented to person, place, time, and situation. Appropriate and pleasant affect. Assessment and Plan of Care: Mechanical fall resulting in right hip pain and inability to bear weight Acute fracture of Acetabulum -X-ray right hip and femur showing cortical step-off at the right acetabulum medially concerning for fracture, mild degenerative changes of the hip, intact right femur and right knee total knee arthroplasty changes appear to be intact. -CT pelvis without contrast was then obtained reporting no evidence of acute pelvic or hip trauma, upon personal review concerns for acetabular fracture and called to discuss concerns with orthopedic surgery team who also reviewed CT confirming acute fracture of right acetabulum. -Orthopedic surgery team following, discussed in detail with orthopedic PA stating patient may be toe-touch weightbearing to the right lower extremity and follow-up outpatient. -Symptomatic care and pain management with Tylenol 650 mg every 6 hours as needed for mild pain/fever, Toradol 15 mg IVP every 6 hours as needed for moderate pain, and morphine 2 mg IVP every 4 hours as needed for severe pain. -Fall precautions in place. -Consult placed to Physical Therapy and Occupational Therapy for evaluation. Mild dementia -Patient currently alert and oriented to person, place, time, and situation a nswers questions appropriately. Does have noted short-term memory loss as answered questions may require answering again after couple hours and patient has demonstrated this multiple times. Maintain safe and supportive care and assistance/redirection if needed. Continue Namenda 10 mg daily. Hypertension -Monitor vital signs and continue daily medication regimen with-Lisinopril 10 mg daily. Hyperlipidemia -Continue daily medication regimen with Zetia 10 mg daily. Data and imaging reviewed: Morning labs reviewed. CBC remains pending at this time. BMP showing hy ponatremia with sodium of 132. Blood glucose 114. Magnesium 1.9. Vital signs reviewed. Blood pressure 141/66, heart rate 70, respiratory rate 16, temp 98.6 F, and SpO2 of 96% on room air. CODE STATUS: Full code DVT prophylaxis: Lovenox Anticipated discharge date/place: Pending approval from [facility]. Patient was seen independently by Nurse Practitioner. This document was prepared using [employer] dictation software. Please allow for errors in bowling ball finisher while rare they do occur. Loy Cr NP rendered care for this patient independently, reviewed the findings and plan as documented in the note above and agree with plan. I did not physically speak with or examine the patient on this date. Objective - Vital Signs Vital signs: Vital Signs Temp 98.6 F 03/30/24 06:55 Pulse 70 03/30/24 06:55 Resp 16 03/30/24 06:55 BP 141/66 03/30/24 06:55 Pulse Ox 96 03/30/24 06:55 FiO2 Intake & Output 03/29/24 03/30/24 03/30/24 18:59 06:59 18:59 Output Total 400 1000 Balance -400 -1000 Weight 48.988 kg Output: Urine 400 1000 Uretheral (Culp) 100 Other: Voiding Method Bedside Commode Indwelling Catheter # Voids 1 - Labs CBC & Chem 7: 03/29/24 03:11 03/30/24 06:56 Labs: Abnormal Lab Results - Last 24 Hours (Table) 03/29/24 Range/Units 03:11 RBC 3.81 L (4.10-5.20) X 10*6/uL Hgb 11.1 L (12.0-15.0) g/dL Hct 33.4 L (37.2-46.3) %
[2024-03-30 17:05] LABS: HGB 11.9 g/dL (12.0-15.0); MCV 85.4 FL (80.0-97.0); Mean Platelet Volume 10.2 FL (9.5-12.2); NRBC Per 100 WBC 0 X 10*3/uL (0.00-0.01); Platelet Count 250 X 10*3/uL (140-440); WBC 7.96 X 10*3/uL (4.50-10.00)
[2024-03-31] MEDS: IBUPROFEN 400 MG TAB PO PRN (08:38)
[2024-03-31 09:29] VITALS: PULSE 85; RESP 17
--- NOTE | 2024-03-31 09:53 | P.DS ---
Providers Date of admission: 03/28/24 14:06 Expected date of discharge: 03/31/24 Attending physician: Eliseo Camacho Consults: 03/28/24 15:01 Consult Physician Routine Consulting Provider: Dave Allen Consult Reason/Comments: hip pain Do you want consulting provider notified?: Yes Primary care physician: Stated None Hospital Course: Discharge Diagnosis: Acetabulum fracture Mild dementia Hypertension Hyperlipidemia Hospital Course: Patient is a very pleasant 78-year-old female with a past medical history of hypertension, hyperlipidemia, GERD, mild dementia, and nodules on her thyroid. She presented to the emergency department status post right hip pain status post trip and fall at home. Patient lives at home alone and ambulates independently at baseline, she denies hitting her head or experiencing any dizziness/lightheadedness prior to fall stating she simply tripped falling directly onto her right hip and has since been unable to bear any weight on her right lower extremity and has had persistent pain in right hip. Upon arrival to our facility, patient underwent evaluation in the emergency department. Vital signs upon arrival show blood pressure 154/66, heart rate 85, respiratory rate 20, temp 97.9 F, SpO2 of 98% on room air. EKG completed showing normal sinus rhythm at 81 bpm with no significant T wave or ST abnormality showing no signs of acute ischemia upon personal review and interpretation. X-ray right hip and femur showing cortical step-off at the right acetabulum medially concerning for fracture, mild degenerative changes of the hip, intact right femur and right knee total knee arthroplasty changes appear to be intact. CT pelvis without c ontrast was then obtained showing no evidence of acute pelvic or hip trauma. Labs were completed and reviewed. CBC showing leukocytosis with WBC count of 11.0 otherwise normal findings. BMP showing hyponatremia with sodium of 133 and slightly elevated BUN of 23 otherwise normal findings. Blood glucose 136. Liver profile unremarkable. Urinalysis negative for infection showing small amount of leukocyte esterase and only 8 WBCs. Attempts were made at ambulating patient in the emergency department unsuccessful as patient remained unable to place any weight on right lower extremity. Patient admitted under our services with consultation to orthopedic surgery team. CT images were personally reviewed and reviewed by orthopedic surgeon confirming patient did have an acute fracture of right acetabulum. Patient to remain toe-touch weightbearing only to her right lower extremity until further instructed at outpatient she was evaluated by physical and Occupational Therapy and will require placement in SNF. Follow-up appointment with orthopedic surgery team. Patient medically optimized for discharge to [facility]. Physical exam: Vital signs reviewed and stable. General: Nontoxic, no distress and appears stated age. Derm: Skin warm and dry, normal coloration for ethnicity. Head: Atraumatic, normocephalic and symmetric. Eyes: EOM's intact, no lid lag, and anicteric sclera Mouth: no lip lesions, mucus membranes moist Cardiovascular: regular rate and rhythm with normal S1S2, no murmur, positive posterior tibial pulses bilaterally, and cap refill < 2 seconds. Lungs: Respirations even, regular, and unlabored on room air. Lungs CTA bilaterally, no rhonchi, no rales, no wheezing, and no accessory muscle usage. Abdominal: soft, nontender to palpation, no guarding, no appreciable organomegaly Ext: No gross muscle atrophy, no edema, no contractures. Sensation intact. Patient with moderate pain to right hip upon movement. She was unable to raise right lower extremity independently, full range of motion to left lower extremity and bilateral upper extremities. Neuro: Speech clear, face symmetrical and CN II-XII grossly intact with no noted focal neuro deficits Psych: Alert and oriented to person, place, time, and situation. Appropriate and pleasant affect. A total of 31 minutes of time were spent preparing this complex discharge summary. Pt was discharged on 03/31/2024 at 9:47 AM Patient was seen independently by Nurse Practitioner. This document was prepared using [employer] dictation software. Please allow for errors in home lending officer while rare they do occur. Loy Cr NP rendered care for this patient independently, reviewed the findings and plan as documented in the note above. I did not physically speak with or examine the patient on this date. Patient Condition at Discharge: Stable Plan - Discharge Summary Discharge Rx Participant: Yes New Discharge Prescriptions: New HYDROcodone/APAP 5-325MG [[place] 5-325] 1 tab PO Q4HR PRN 3 Days #18 tab PRN Reason: Moderate Breakthrough Pain RX: Acetaminophen Tab [Tylenol] 650 mg PO Q6HR PRN tab PRN Reason: Mild Pain Or Fever > 100.5 Continue RX: Omeprazole 20 mg PO DAILY RX: Ezetimibe [Zetia] 10 mg PO DAILY RX: lisinopriL [Zestril] 10 mg PO DAILY RX: Memantine [Namenda] 10 mg PO DAILY RX: Meloxicam [Mobic] 15 mg PO DAILY Discharge Medication List RX: Omeprazole 20 mg PO DAILY 07/09/13 [History] RX: Ezetimibe [Zetia] 10 mg PO DAILY 07/10/19 [History] RX: Meloxicam [Mobic] 15 mg PO DAILY 03/28/24 [History] RX: Memantine [Namenda] 10 mg PO DAILY 03/28/24 [History] RX: lisinopriL [Zestril] 10 mg PO DAILY 03/28/24 [History] HYDROcodone/APAP 5-325MG [[place] 5-325] 1 tab PO Q4HR PRN 3 Days #18 tab 03/31/24 [Rx] RX: Acetaminophen Tab [Tylenol] 650 mg PO Q6HR PRN tab 03/31/24 [Rx] Follow up Appointment(s)/Referral(s): Dave Allen DO [Doctor of Osteopathic Medicine] - 10 Days Dave Birmingham DO [Doctor of Osteopathic Medicine] - 1-2 Days Patient Instructions/Handouts: Pelvic Fracture (DC) Activity/Diet/Wound Care/Special Instructions: Activity: Patient is toe-touch weightbearing only to the right lower extremity until further instructed at follow-up appointment with orthopedic surgery team Diet: Heart healthy and carb consistent diet. Special Instructions: Take all of your medications as directed and remember to keep all of your doctor's appointments and follow-up as needed. Thank you for allowing us to participate in your care, it was truly a pleasure having you for our patient!!! . Discharge Disposition: TRANSFER TO SNF/ECF
[2024-03-31 13:32] VITALS: BP 116/65; TEMP 98.4
== END 2024-03-31 17:28 ==
LOC: EEVIPCON 10:22 → EC 10:22 → 4SSUR 14:06 → INTOOBSV 14:06 → OBSVTOIN 14:06 → 4SSUR 15:46 → 5NMEDONC 03-29 03:01
PROVIDERS: ADMIT Student in an Organized Health Care Education/Training Program; ATTEND Student in an Organized Health Care Education/Training Program
DX: S32.401A Unspecified fracture of right acetabulum, initial encounter for closed fracture (principal); W01.0XXA Fall on same level from slipping, tripping and stumbling without subsequent striking against object, initial encounter; D72.829 Elevated white blood cell count, unspecified; E78.5 Hyperlipidemia, unspecified; E87.1 Hypo-osmolality and hyponatremia; F03.A0 Unspecified dementia, mild, without behavioral disturbance, psychotic disturbance, mood disturbance, and anxiety; I10 Essential (primary) hypertension; J45.909 Unspecified asthma, uncomplicated; K21.9 Gastro-esophageal reflux disease without esophagitis; E04.2 Nontoxic multinodular goiter; Z79.1 Long term (current) use of non-steroidal anti-inflammatories (NSAID); Z79.899 Other long term (current) drug therapy; Z87.891 Personal history of nicotine dependence; Z88.2 Allergy status to sulfonamides
CPT/HCPCS: 96372 ×3; 96374; 96375; 99285; 36415; 93005; 97110; 97530 ×2; 97162; 97166 ×2; 80053 ×3; 83735 ×2; 85025; 85027 ×2; 81001; 72170; 73552; 72192; G0378 ×4; J1650 ×3; J2270; J1885